=== PATIENT | female | born 1980 | race Caucasian/White ===

== ENCOUNTER 2018-11-21 10:55 | Emergency (ER) | payer SELFPAY ==
[2018-11-21 11:05] VITALS: BP 129/83
--- NOTE | 2018-11-21 11:24 | ER Document Report ---
HPI - HPI Time Seen by Provider: 11/21/18 11:18 Pain Level: 3 Notes: Patient is a 38-year-old female with no significant past medical history who presents emergency department complaining of right shoulder pain x1 day status post injury. Patient states that she was holding the leash to 1 of her daughter's dogs when it pulled really quickly causing her to fall forward. Patient states that she does have some abrasions to her knees, but her area of concern is her right shoulder. She did not lose consciousness or hit her head. She is eating and drinking without difficulty. She is urinating normally and having normal bowel movements. Patient states that she can ambulate without any discomfort. Denies drug allergies. She has not noticed any bruising or swelling. Denies any headache, fever, head injury, neck pain, changes in vision/speech/mentation/hearing, URI, sore throat, chest pain, palpitations, syncope, cough, shortness of breath, wheeze, dyspnea, abdominal pain, nausea/vomiting/diarrhea, urinary retention, dysuria, hematuria, loss of control of bowel or bladder, numbness/tingling, saddle anesthesia, muscle paralysis, or rash. - ROS Systems Reviewed and Negative: Yes All other systems reviewed and negative - REPRODUCTIVE Reproductive: DENIES: : Past Medical History - Social History Smoking Status: Never Smoker Family History: None Past Surgical History: Reports: Hx Section - Immunizations Hx Diphtheria, Pertussis, Tetanus Vaccination: Yes Vertical Provider Document - CONSTITUTIONAL Agree With Documented VS: Yes Notes: PHYSICAL EXAMINATION: GENERAL: Well-appearing, well-nourished and in no acute distress. NECK: Normal range of motion, supple without lymphadenopathy. Non-tender. Spurling negative. No rigidity/meningismus. LUNGS: Breath sounds clear to auscultation bilaterally and equal. No wheezes rales or rhonchi. HEART: Regular rate and rhythm without murmurs, rubs, gallops. Musculoskeletal: Rt shoulder: FROM to passive/active. Strength 5+/5. + mild impingement test. Neg speed test. No crepitus. No erythema or warmth. No deformity or ecchymosis. RC intact 5+/5 strength. No bony tenderness to palp. Knees b/l: FROM. No bony tenderness. Strength 5+/5. + small abrasions noted without ecchymosis, swelling, or deformity. N/v intact distal. Extremities: No cyanosis, clubbing, or edema b/l. Peripheral pulses 2+. Capillary refill less than 3 seconds. NEUROLOGICAL: Normal speech, normal gait. Normal sensory, motor exams PSYCH: Normal mood, normal affect. SKIN: see above. - INFECTION CONTROL TRAVEL OUTSIDE OF THE [place] IN LAST 30 DAYS: No Course - Re-evaluation Re-evalutation: 11/21/18 11:20 Patient is an afebrile, well-hydrated, 38-year-old female who presents to the ED with Rt shoulder pain which I suspect to be a sprain versus strain. Di fferential also includes mild labral tear. Vitals are acceptable without any significant tachycardia, tachypnea, or hypoxia. PE is otherwise unremarkable for any neurovascular compromise, obvious tendon/ligament rupture, obvious fracture/dislocation, septic joint. No tenderness to palp. Sling provided today. Exercises reviewed. Patient is nontoxic-appearing. Patient is able to ambulate and weight-bear. [place] knee rules neg. No labs or imaging warranted at this time based on H&P. Conservative measures otherwise for symptoms. Recheck with your PCM in 3-5 days. Consider consult orthopedics. Return to the ED with any worsening/concerning symptoms otherwise as reviewed in discharge. Patient is in agreement. - Vital Signs Vital signs: Temp Pulse Resp BP Pulse Ox 98.6 F 105 H 15 129/83 H 100 11/21/18 11:04 11/21/18 11:04 11/21/18 11:04 11/21/18 11:04 11/21/18 11:04 Discharge - Discharge Clinical Impression: Right shoulder pain Qualifiers: Chronicity: acute Qualified Code(s): M25.511 - Pain in right shoulder Condition: Stable Disposition: HOME, SELF-CARE Instructions: Exercise Program for the Shoulder ([facility]) Additional Instructions: Rest, Ice, Compression, Elevation Use sling as directed Tylenol/ibuprofen as needed Light stretches daily Strength exercises as able Moist heat and massage may help F/u with your PCP in 3-5 days for a recheck Consider consult(s) with Orthopedics/physical therapy for ongoing/worsening symptoms Return to the ED with any worsening symptoms and/or development of fever, headache, chest pain, palpitations, syncope, shortness of breath, trouble breathing, abdominal pain, n/v/d, muscle weakness/paralysis, numbness/tingling, swelling, redness, or other worsening symptoms that are concerning to you. Forms: Elevated Blood Pressure Referrals: [facility] ([facility]) [Provider Group] - Follow up as needed
== END 2018-11-21 11:42 | disposition home or self-care (01) ==
LOC: ER 10:55
DX: M25.511 Pain in right shoulder (principal)
CPT/HCPCS: 99283

== ENCOUNTER 2019-02-24 16:56 | Inpatient (IN) | payer SELFPAY ==
--- NOTE | 2019-02-24 19:26 | ER Document Report ---
ED Medical Screen (RME) - General Chief Complaint: Rectal Bleeding Stated Complaint: ANAL PAIN, BLEEDING Time Seen by Provider: 02/24/19 19:20 Mode of Arrival: Ambulatory Information source: Patient TRAVEL OUTSIDE OF THE [place] IN LAST 30 DAYS: No - HPI Notes: 02/24/19 19:27 38-year-old female presents to the ED for complaints of having diarrhea which is caused her to have anal pain and bleeding for well over 6 months, has never been seen by her primary care provider. Patient has never had this issue looked into before. Denies any new medications foods or travel. Denies a history of IBS or C. difficile. Patient never had a colonoscopy previously. Patient reports she does have a history of hemorrhoids, has tried hemorrhoid cream without relief. Denies any clotting or bleeding disorders. Patient states that she has bloody diarrhea persistently. ROS: Other than noted above, the 12 point review of systems was reviewed with the patient and were negative, all pertinent findings are included in the HPI. PHYSICAL EXAMINATION: Vital signs reviewed. GENERAL: Well-appearing, well-nourished and in no acute distress. HEAD: Atraumatic, normocephalic. NECK: Normal range of motion CV: Heart regular rate and rhythm LUNGS: No respiratory distress ABD: no tenderness throughout Musculoskeletal: Normal range of motion NEUROLOGICAL: Normal speech PSYCH: Normal mood, normal affect. MDM: Patient seen and examined for rapid initial assessment. Vital signs reviewed. A comprehensive ED assessment and evaluation of the patient, analysis of test results and completion of the medical decision making process will be conducted by additional ED providers. *Note is created using voice recognition software and may contain spelling, syn tax or grammatical errors. - Related Data Allergies/Adverse Reactions: No Known Allergies Allergy (Verified 02/24/19 16:56) Past Medical History Renal/ Medical History: Denies: Hx Peritoneal Dialysis Past Surgical History: Reports: Hx Section - Immunizations Hx Diphtheria, Pertussis, Tetanus Vaccination: Yes Physical Exam - Vital signs Vitals: Temp Pulse Resp BP Pulse Ox 98.4 F 112 H 14 120/75 100 02/24/19 16:59 02/24/19 16:59 02/24/19 16:59 02/24/19 16:59 02/24/19 16:59 Course - Vital Signs Vital signs: Temp Pulse Resp BP Pulse Ox 98.4 F 112 H 14 120/75 100 02/24/19 16:59 02/24/19 16:59 02/24/19 16:59 02/24/19 16:59 02/24/19 16:59
[2019-02-24 20:28] LABS: HEMATOCRIT 16.9 % (36.0-47.0); MEAN CORPUSCULAR HEMOGLOBIN 21.1 pg (27.0-33.4); MEAN CORPUSCULAR HGB CONC 28.5 g/dL (32.0-36.0); MEAN CORPUSCULAR VOLUME 74 fl (80-97); PLATELET COUNT 227 10^3/uL (150-450); RED BLOOD COUNT 2.29 10^6/uL (3.72-5.28); RED CELL DISTRIBUTION WIDTH 19.4 % (11.5-14.0); WHITE BLOOD COUNT 7.5 10^3/uL (4.0-10.5)
[2019-02-24 20:31] LABS: INTERNATIONAL RATION (INR) 1.58
[2019-02-24 20:32] LABS: PARTIAL THROMBOPLASTIN TIME 36.2 SEC (23.5-35.8)
[2019-02-24 20:38] LABS: ALBUMIN 2.8 g/dL (3.5-5.0); ALKALINE PHOSPHATASE 384 U/L (38-126); ANION GAP 12 (5-19); ASPARTATE AMINO TRANSFERASE 164 U/L (14-36); BILIRUBIN,DIRECT 1.8 mg/dL (0.0-0.4); BILIRUBIN,TOTAL 2.8 mg/dL (0.2-1.3); CALCIUM 8.4 mg/dL (8.4-10.2); CARBON DIOXIDE 25 mmol/L (22-30); CHLORIDE 99 mmol/L (98-107); GLUCOSE 74 mg/dL (75-110); POTASSIUM 3.8 mmol/L (3.6-5.0); TOTAL PROTEIN 6.6 g/dL (6.3-8.2)
[2019-02-24 20:41] LABS: BLOOD UREA NITROGEN < 2 mg/dL (7-20)
[2019-02-24 20:53] LABS: ABSOLUTE LYMPHOCYTES# (MANUAL) 1.7 10^3/uL (0.5-4.7); ABSOLUTE MONOCYTES # (MANUAL) 0.3 10^3/uL (0.1-1.4); ANISOCYTOSIS 2+; BASOPHILS % (MANUAL) 0 % (0-2); EOSINOPHILS % (MANUAL) 0 % (0-6); HYPOCHROMASIA 4+; LYMPHOCYTES % (MANUAL) 23 % (13-45); MONOCYTES % (MANUAL) 4 % (3-13); PLATELET COMMENT ADEQUATE; SEGMENTED NEUTROPHILS % (MAN) 73 % (42-78); STOMATOCYTES 1+; TOTAL CELLS COUNTED 100
[2019-02-24 20:54] LABS: HEMOGLOBIN 4.8 g/dL (12.0-15.5)
[2019-02-24] MEDS ORDERED: NORMAL SALINE 250 ML IV PRN (21:14)
[2019-02-24] MEDS ORDERED: ONDANSETRON HCL INJ/PF 4 MG/2 ML SDV IV ONE (21:15)
[2019-02-24] MEDS ORDERED: MORPHINE SULFATE 10 MG/ML INJ IV ONE (21:15)
--- NOTE | 2019-02-24 21:23 | ER Document Report ---
ED General - General Chief Complaint: Rectal Bleeding Stated Complaint: ANAL PAIN, BLEEDING Time Seen by Provider: 02/24/19 19:20 Mode of Arrival: Ambulatory TRAVEL OUTSIDE OF THE [place] IN LAST 30 DAYS: No - HPI Notes: Patient is a 38-year-old female who presents to the emergency department for evaluation of increased rectal and hemorrhoidal pain, bloody diarrhea. She is been having the symptoms for about 6 months, worse over the last several days. She states that when she lays down at night she has pain that is shooting and electrical in nature, rates it a 4 out of 5. It is in the rectal region. She states she has bright red blood per rectum with every bowel movement. It is diarrhea like. She has attributed to her hemorrhoids. She has not followed up with anybody in regards to this. She is never had a colonoscopy. She describes feeling weak in general. - Related Data Allergies/Adverse Reactions: No Known Allergies Allergy (Verified 02/24/19 16:56) Past Medical History - General Information source: Patient - Social History Smoking Status: Never Smoker Frequency of alcohol use: None Drug Abuse: None Family History: Other - sister of a "stomach tumor" Patient has suicidal ideation: No Patient has homicidal ideation: No - Past Medical History Cardiac Medical History: Reports: None Renal/ Medical History: Denies: Hx Peritoneal Dialysis Past Surgical History: Reports: Hx Section - Immunizations Hx Diphtheria, Pertussis, Tetanus Vaccination: Yes Review of Systems - Review of Systems Constitutional: See HPI EENT: No symptoms reported Cardiovascular: No symptoms reported Respiratory: No symptoms reported Gastrointestinal: See HPI Genitourinary: No symptoms reported Female Genitourinary: No symptoms reported Musculoskeletal: No symptoms reported Skin: No symptoms reported Neurological/Psychological: No symptoms reported Physical Exam - Vital signs Vitals: Temp Pulse Resp BP Pulse Ox 98.4 F 112 H 14 120/75 100 02/24/19 16:59 02/24/19 16:59 02/24/19 16:59 02/24/19 16:59 02/24/19 16:59 - Notes Notes: Vital signs reviewed, please refer to chart. Head is normocephalic, atraumatic. Pupils equal round, reactive to light. Neck is supple without meningismus. Heart is regular rate and rhythm. Lungs are clear to auscultation bilaterally. Abdomen is soft, nontender, normoactive bowel sounds throughout. No hepatomegaly appreciated. Rectal exam is performed. Nurse Solange in the room at the time of rectal exam. She has a large prolapsed hemorrhoids, which are not thrombosed or actively bleeding. She has bright red blood on rectal exam. Extremities without cyanosis, clubbing. Posterior calves are nontender. Peripheral pulses are equal. Skin is warm and dry. Patient is awake, alert, neurological exam is nonfocal. Course - Re-evaluation Re-evalutation: 02/24/19 21:21 Patient presents emergency department for evaluation. She had initial laboratory vesication's as ordered through triage. I did order her pain medicine, as a rectal exam was significantly uncomfortable for the patient. Given her low hemoglobin, she was typed and crossed for 3 units. I am concerned with her abnormal LFTs about the possibility of metastatic colon cancer of some sort. CT scan of the abdomen pelvis with IV contrast is ordered and pending at this time. We will continue to monitor. 02/24/19 23:32 Patient receiving blood. Her CT scan revealed anasarca, findings concerning for metastasis. I am strongly concerned that this patient is a primary colon cancer. We do have gastroenterology on this evening. She will likely require colonoscopy for further evaluation. She is given blood, tolerating that well. She asks for more pain medication. Abnormal findings explained her in detail, as well as the need for work-up. She voiced understanding. I spoke with Dr. Lopez who will come to the department to evaluate the patient. 02/24/19 23:33 - Vital Signs Vital signs: Temp Pulse Resp BP Pulse Ox 98.3 F 112 H 15 108/50 L 98 02/24/19 23:23 02/24/19 23:50 02/24/19 23:50 02/24/19 23:46 02/24/19 23:50 - Laboratory Result Diagrams: 02/24/19 20:00 02/24/19 20:00 Laboratory results interpreted by me: 02/24/19 02/24/19 02/24/19 20:00 20:00 20:00 RBC 2.29 L Hgb 4.8 L* Hct 16.9 L MCV 74 L MCH 21.1 L MCHC 28.5 L RDW 19.4 H PT 19.0 H APTT 36.2 H Sodium 135.5 L BUN < 2 L Creatinine 0.42 L Glucose 74 L Total Bilirubin 2.8 H Direct Bilirubin 1.8 H AST 164 H Alkaline Phosphatase 384 H Albumin 2.8 L Stool for White Cells Crossmatch 02/24/19 02/24/19 20:00 20:50 RBC Hgb Hct MCV MCH MCHC RDW PT APTT Sodium BUN Creatinine Glucose Total Bilirubin Direct Bilirubin AST Alkaline Phosphatase Albumin Stool for White Cells FEW H Crossmatch See Detail Discharge - Discharge Clinical Impression: Severe anemia, Lower GI bleeding, Anasarca Condition: Stable Disposition: ADMITTED INPATIENT Admitting Provider: Jessica (Hospitalist) Unit Admitted: Telemetry
--- NOTE | 2019-02-24 22:58 | RADIOLOGY REPORT (SQ) ---
EXAM DESCRIPTION: CT ABDOMEN PELVIS WITH IV CONTRAST COMPLETED DATE/TME: 02/24/2019 21:15 CLINICAL HISTORY: 38 years, Female, rectal bleeding, abnormal LFTs COMPARISON: None. TECHNIQUE: CT of the abdomen and pelvis was performed following intravenous administration of contrast. Oral contrast was not administered. Images stored on PACS. All CT scanners at this facility use dose modulation, iterative reconstruction, and/or weight based dosing when appropriate to reduce radiation dose to as low as reasonably achievable (ALARA). [facility]: Dose Right [facility]: CareDose [facility]: Dose Right [facility]: Teradose 4D [facility]: PureWRX LIMITATIONS: None. FINDINGS: Chest: Evaluation through the lung bases reveals no focal opacity, pleural effusion or pneumothorax. Heart size is within normal limits. No pericardial effusion. Abdomen and pelvis: Hepatomegaly measuring 18 cm in craniocaudal dimension. Splenomegaly measuring 17 cm in craniocaudal dimension. Prominent perisplenic upper abdominal vessels concerning for varices. Diffusely decreased attenuation of the liver raising the possibility of hepatic steatosis, however a nonspecific finding on a contrast-enhanced CT examination. Diffuse haziness of the abdominal pelvic mesentery with thin linear stranding/layering fluid of the bilateral paracolic gutter. Additionally, small fluid collection present within the dependent pelvis with associated diffuse reticulation of the subcutaneous tissues suggesting anasarca and developing ascites. Additionally, there is diffuse hazy appearance of the retroperitoneal fat planes suggesting edema. Trace fluid suspected at the level of the gallbladder fossa. The gallbladder, pancreas, bilateral kidneys and bilateral adrenal glands are otherwise within normal limits. The vessels are patent and normal in caliber. No abdominopelvic lymph nodes are noted to be pathologically enlarged by CT measurement criteria. The bowel is within normal limits without abnormal bowel wall thickness or bowel dilation. No free air. No organizing abdominopelvic fluid collections. The appendix is within normal limits. The osseous structures are within normal limits. IMPRESSION: 1. No specific acute intra-abdominal findings are noted to suggest etiology of the patient's abdominal pain. 2. Hepatosplenomegaly and suspected varices of uncertain etiology. 3. Mesenteric haziness with small volume of fluid within the bilateral paracolic gutters and pelvis concerning for ascites. 4. Diffuse reticulation of the abdominopelvic soft tissues suggesting anasarca. 5. Trace fluid suspected at the gallbladder fossa. TECHNICAL DOCUMENTATION: Quality ID # 436: Final reports with documentation of one or more dose reduction techniques (e.g., Automated exposure control, adjustment of the mA and/or kV according to patient size, use of iterative reconstruction technique) copyright 2011 [employer]- All Rights Reserved
--- NOTE | 2019-02-25 00:12 | PDOC H&P ---
History of Present Illness Admission Date/PCP: 02/24/19 History of Present Illness: JEFF MCKENZIE is a 38 year old female with a history of hemorrhoids who comes and because of bright red blood per rectum and rectal pain. She said it is been going on for at least 6 months and has gotten worse in the past month. She at tributed the bleeding to the hemorrhoids that she has had since she has had children. She says in the past month she has had intermittent rectal pain that seems to get worse whenever she lays down. She has not been to see a doctor about this and does not have a primary care doctor. Her oral intake has decreased. She denies any abdominal pain but says that her belly feels full. She has not had any melena, just hematochezia. The ER provider did not notice that her hemorrhoids were bleeding, but she did have bright red blood per rectum on rectal exam. The patient smokes a few cigarettes a day. She says that her sister a few years ago from a "stomach tumor." Her hemoglobin in the ER was 4.8, and she had a troubling constellation of laboratory abnormalities to go with it. She has some elevation of her liver enzymes and alkaline phosphatase, as well as her bilirubin. Her INR was also elevated. Her CT scan showed hepatosplenomegaly and anasarca, along with diffuse edema, but no definite masses or enlarged lymph nodes. She is being admitted for blood transfusion medical stabilization, and will ultimately need a colonoscopy. Past Medical History Cardiac Medical History: Reports: None Past Surgical History Past Surgical History: Reports: Section Social History Smoking Status: Never Smoker Family History Family History: Hypertension, Other - sister of a "stomach tumor" Parental Family History Reviewed: Yes Children Family History Reviewed: Yes - No medical problems Sibling(s) Family History Reviewed.: Yes - Sister of a "stomach tumor" Medication/Allergy Home Medications: Hydrocodone/Acetaminophen [[place] 5-325 mg Tablet] 1 tab PO QID #15 tablet 09/19/13 Amoxicillin 500 mg PO BID #20 capsule 08/19/15 Allergies/Adverse Reactions: No Known Allergies Allergy (Verified 02/24/19 16:56) Review of Systems All systems: reviewed and no additional remarkable complaints except as stated - All systems were reviewed and were negative except as noted in the HPI Physical Exam Vital Signs: Temp Pulse Resp BP Pulse Ox 98.3 F 112 H 15 108/50 L 98 02/24/19 23:23 02/24/19 23:50 02/24/19 23:50 02/24/19 23:46 02/24/19 23:50 Intake & Output 02/23/19 02/24/19 02/25/19 06:59 06:59 06:59 Intake Total 0 Balance 0 Weight 75.9 kg General appearance: PRESENT: no acute distress, cooperative, disheveled, obese Head exam: PRESENT: atraumatic, normocephalic Eye exam: PRESENT: EOMI, PERRLA, scleral icterus. ABSENT: conjunctival injection, nystagmus Ear exam: PRESENT: normal external ear exam Mouth exam: PRESENT: moist, neck supple Throat exam: ABSENT: post pharyngeal erythema Neck exam: PRESENT: full ROM. ABSENT: carotid bruit, JVD, lymphadenopathy, meningismus, tenderness, thyromegaly Respiratory exam: PRESENT: clear to auscultation shira, symmetrical, unlabored. ABSENT: accessory muscle use, chest wall tenderness, crackles, prolonged expiratory phas, rhonchi, tachypnea, wheezes Cardiovascular exam: PRESENT: +S1, +S2, tachycardia Pulses: PRESENT: normal carotid pulses Vascular exam: PRESENT: pallor GI/Abdominal exam: PRESENT: normal bowel sounds, soft. ABSENT: distended, guarding, mass, rebound, tenderness Extremities exam: ABSENT: clubbing, pedal edema Musculoskeletal exam: PRESENT: ambulatory, normal inspection. ABSENT: deformity Neurological exam: PRESENT: alert, awake, oriented to person, oriented to place, oriented to situation, CN II-XII grossly intact. ABSENT: motor sensory deficit Psychiatric exam: PRESENT: appropriate affect, normal mood Skin exam: PRESENT: dry, jaundice, warm Results Laboratory Results: 02/24/19 20:00 02/24/19 20:00 02/24/19 02/24/19 02/24/19 20:00 20:00 20:00 WBC 7.5 RBC 2.29 L Hgb 4.8 L* Hct 16.9 L MCV 74 L MCH 21.1 L MCHC 28.5 L RDW 19.4 H Plt Count 227 Seg Neutrophils % Not Reportable Lymphocytes % Not Reportable Monocytes % Not Reportable Eosinophils % Not Reportable Basophils % Not Reportable Absolute Neutrophils Not Reportable Absolute Lymphocytes Not Reportable Absolute Monocytes Not Reportable Absolute Eosinophils Not Reportable Absolute Basophils Not Reportable Sodium 135.5 L Potassium 3.8 Chloride 99 Carbon Dioxide 25 Anion Gap 12 BUN < 2 L Creatinine 0.42 L Est GFR ( Amer) > 60 Est GFR (Non-Af Amer) > 60 Glucose 74 L Calcium 8.4 Total Bilirubin 2.8 H AST 164 H Alkaline Phosphatase 384 H Total Protein 6.6 Albumin 2.8 L Stool for White Cells FEW H Blood Type Antibody Screen 02/24/19 20:50 WBC RBC Hgb Hct MCV MCH MCHC RDW Plt Count Seg Neutrophils % Lymphocytes % Monocytes % Eosinophils % Basophils % Absolute Neutrophils Absolute Lymphocytes Absolute Monocytes Absolute Eosinophils Absolute Basophils Sodium Potassium Chloride Carbon Dioxide Anion Gap BUN Creatinine Est GFR ( Amer) Est GFR (Non-Af Amer) Glucose Calcium Total Bilirubin AST Alkaline Phosphatase Total Protein Albumin Stool for White Cells Blood Type A NEGATIVE Antibody Screen NEGATIVE Impressions: Abdomen/Pelvis CT 02/24/19 21:15 IMPRESSION: 1. No specific acute intra-abdominal findings are noted to suggest etiology of the patient's abdominal pain. 2. Hepatosplenomegaly and suspected varices of uncertain etiology. 3. Mesenteric haziness with small volume of fluid within the bilateral paracolic gutters and pelvis concerning for ascites. 4. Diffuse reticulation of the abdominopelvic soft tissues suggesting anasarca. 5. Trace fluid suspected at the gallbladder fossa. TECHNICAL DOCUMENTATION: Quality ID # 436: Final reports with documentation of one or more dose reduction techniques (e.g., Automated exposure control, adjustment of the mA and/or kV according to patient size, use of iterative reconstruction technique) copyright 2011 [employer]- All Rights Reserved Assessment and Plan - Diagnosis (1) Acute blood loss anemia Is this a current diagnosis for this admission?: Yes Plan: She is had 3 units of packed red blood cells ordered. We will do serial CBCs to determine whether or not she will need more blood. (2) Lower GI bleeding Is this a current diagnosis for this admission?: Yes Plan: Once she is medically stabilized and looks like she does not have any more bleeding, either GI or surgery will need to be consulted for a colonoscopy. She has never had a colonoscopy. (3) Anasarca Is this a current diagnosis for this admission?: Yes Plan: Her presentation is troubling. She does not have any definite masses on her CT, but she had a constellation of findings on the CT scan coupled with some of her laboratory findings as well as her family history that will definitely warrant further investigation. As noted above, when her hemoglobin appears stable she will need a consultation negative colonoscopy. Depending upon the findings, she may need an oncology consultation. I will order a CEA and a CA 199. - Time Time Spent with patient: 35 or more minutes - Inpatient Certification Based on my medical assessment, after consideration of the patient's comorbidities, presenting symptoms, or acuity I expect that the services needed warrant INPATIENT care.: Yes I certify that my determination is in accordance with my understanding of Medicare's requirements for reasonable and necessary INPATIENT services [42 CFR 412.3e].: Yes Medical Necessity: Need Close Monitoring Due to Risk of Patient Decompensation, Need For IV Fluids, Need For Continuous Telemetry Monitoring, Risk of Complication if Not Cared For in Hospital
[2019-02-25] MEDS ORDERED: MORPHINE SULFATE 10 MG/ML INJ IV ONE (01:38)
[2019-02-25] MEDS ORDERED: CALCIUM CARBONATE 500 MG TAB.CHEW PO ONE (04:00)
[2019-02-25] MEDS: MORPHINE SULFATE 10 MG/ML INJ IV PRN ×3 (05:44→20:48)
[2019-02-25 10:40] LABS: PATH REVIEW PATHOLOGIST REVIEWED
[2019-02-25 12:26] LABS: HEMATOCRIT 23.5 % (36.0-47.0); MEAN CORPUSCULAR HEMOGLOBIN 25.2 pg (27.0-33.4); PLATELET COUNT 179 10^3/uL (150-450); RED BLOOD COUNT 2.98 10^6/uL (3.72-5.28); RED CELL DISTRIBUTION WIDTH 20.2 % (11.5-14.0); WHITE BLOOD COUNT 6.6 10^3/uL (4.0-10.5)
[2019-02-25 12:28] LABS: MEAN CORPUSCULAR VOLUME 79 fl (80-97)
[2019-02-25 12:29] LABS: HEMOGLOBIN 7.5 g/dL (12.0-15.5)
[2019-02-25 12:41] LABS: ALBUMIN 2.5 g/dL (3.5-5.0); ALKALINE PHOSPHATASE 311 U/L (38-126); ANION GAP 6 (5-19); ASPARTATE AMINO TRANSFERASE 107 U/L (14-36); BILIRUBIN,DIRECT 3.3 mg/dL (0.0-0.4); CALCIUM 8.5 mg/dL (8.4-10.2); CARBON DIOXIDE 27 mmol/L (22-30); CHLORIDE 101 mmol/L (98-107); GLUCOSE 88 mg/dL (75-110); POTASSIUM 3.8 mmol/L (3.6-5.0)
[2019-02-25 12:43] LABS: BLOOD UREA NITROGEN < 2 mg/dL (7-20)
--- NOTE | 2019-02-25 13:20 | PDOC PROGRESS REPORT ---
Subjective Progress Note for:: 02/25/19 Subjective:: This is a 38 yr old female with chronic alcohol abuse (drinks 3-4 cans of beer/day) and hemorrhoids who presented with bright red blood per rectum for several months, rectal pain and severe anemia. She was admitted for GI bleed. No acute event overnight. Patient just finished her third unit of packed RBC. States that she still has bright red blood on her stool this morning but not as significant as the past few days. She denies abdominal pain. No hematemesis. Will consult GI as she may need both colonoscopy and a screening EGD for varices. Reason For Visit: ABLA, LOWER GI BLEED Physical Exam Vital Signs: Temp Pulse Resp BP Pulse Ox 98.2 F 94 15 100/55 L 95 02/25/19 09:00 02/25/19 09:00 02/25/19 09:00 02/25/19 09:00 02/25/19 09:00 Intake & Output 02/24/19 02/25/19 02/26/19 06:59 06:59 06:59 Intake Total 600 0 Balance 600 0 Weight 167 lb 5.294 oz General appearance: PRESENT: no acute distress, well-developed, well-nourished Head exam: PRESENT: atraumatic, normocephalic Eye exam: PRESENT: conjunctiva pink, EOMI, PERRLA. ABSENT: scleral icterus Ear exam: PRESENT: normal external ear exam Mouth exam: PRESENT: moist, tongue midline Neck exam: ABSENT: carotid bruit, JVD, lymphadenopathy, thyromegaly Respiratory exam: PRESENT: clear to auscultation shira. ABSENT: rales, rhonchi, wheezes Cardiovascular exam: PRESENT: RRR. ABSENT: diastolic murmur, rubs, systolic murmur Pulses: PRESENT: normal dorsalis pedis pul GI/Abdominal exam: PRESENT: normal bowel sounds, soft. ABSENT: distended, guarding, mass, organolmegaly, rebound, tenderness Rectal exam: PRESENT: deferred Extremities exam: PRESENT: full ROM. ABSENT: calf tenderness, clubbing, pedal edema Neurological exam: PRESENT: alert, awake, oriented to person, oriented to place, oriented to time, oriented to situation, CN II-XII grossly intact. ABSENT: motor sensory deficit Results Laboratory Results: 02/24/19 20:00 02/24/19 20:00 02/24/19 02/24/19 02/24/19 20:00 20:00 20:00 WBC 7.5 RBC 2.29 L Hgb 4.8 L* Hct 16.9 L MCV 74 L MCH 21.1 L MCHC 28.5 L RDW 19.4 H Plt Count 227 Seg Neutrophils % Not Reportable Lymphocytes % Not Reportable Monocytes % Not Reportable Eosinophils % Not Reportable Basophils % Not Reportable Absolute Neutrophils Not Reportable Absolute Lymphocytes Not Reportable Absolute Monocytes Not Reportable Absolute Eosinophils Not Reportable Absolute Basophils Not Reportable Sodium 135.5 L Potassium 3.8 Chloride 99 Carbon Dioxide 25 Anion Gap 12 BUN < 2 L Creatinine 0.42 L Est GFR ( Amer) > 60 Est GFR (Non-Af Amer) > 60 Glucose 74 L Calcium 8.4 Total Bilirubin 2.8 H AST 164 H Alkaline Phosphatase 384 H Total Protein 6.6 Albumin 2.8 L Stool for White Cells FEW H Blood Type Antibody Screen 02/24/19 20:50 WBC RBC Hgb Hct MCV MCH MCHC RDW Plt Count Seg Neutrophils % Lymphocytes % Monocytes % Eosinophils % Basophils % Absolute Neutrophils Absolute Lymphocytes Absolute Monocytes Absolute Eosinophils Absolute Basophils Sodium Potassium Chloride Carbon Dioxide Anion Gap BUN Creatinine Est GFR ( Amer) Est GFR (Non-Af Amer) Glucose Calcium Total Bilirubin AST Alkaline Phosphatase Total Protein Albumin Stool for White Cells Blood Type A NEGATIVE Antibody Screen NEGATIVE Impressions: Abdomen/Pelvis CT 02/24/19 21:15 IMPRESSION: 1. No specific acute intra-abdominal findings are noted to suggest etiology of the patient's abdominal pain. 2. Hepatosplenomegaly and suspected varices of uncertain etiology. 3. Mesenteric haziness with small volume of fluid within the bilateral paracolic gutters and pelvis concerning for ascites. 4. Diffuse reticulation of the abdominopelvic soft tissues suggesting anasarca. 5. Trace fluid suspected at the gallbladder fossa. TECHNICAL DOCUMENTATION: Quality ID # 436: Final reports with documentation of one or more dose reduction techniques (e.g., Automated exposure control, adjustment of the mA and/or kV according to patient size, use of iterative reconstruction technique) copyright 2011 [employer]- All Rights Reserved Assessment and Plan - Diagnosis (1) Acute blood loss anemia Is this a current diagnosis for this admission?: Yes Plan: She had 3 units of packed red blood cells. Repeat Hb has improved to 7.5. Will cotninue to monitor H&H. (2) Lower GI bleeding Is this a current diagnosis for this admission?: Yes Plan: Consulted GI as she may need both colonoscopy and a screening EGD for varices. (3) Severe anemia Is this a current diagnosis for this admission?: Yes Plan: As per number 1. (4) Alcohol abuse Is this a current diagnosis for this admission?: Yes Plan: She says she drinks 3 cans of beer a day and has been drinking for more than 10 years. She says her last drink was 3 days ago. Counseled in length about alcohol use cessation. 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 - Time Time Spent with patient: 25-34 minutes
[2019-02-25] MEDS ORDERED: PEG 3350/NA SULF,BICARB,CL/KCL 4000 ML PO ONE (17:15)
[2019-02-25] MEDS: NORMAL SALINE 1000 ML 1,000 ML IV PRN (17:30)
[2019-02-25 18:37] LABS: HEMATOCRIT 25.8 % (36.0-47.0); HEMOGLOBIN 8.2 g/dL (12.0-15.5); MEAN CORPUSCULAR HEMOGLOBIN 25.1 pg (27.0-33.4); MEAN CORPUSCULAR HGB CONC 31.7 g/dL (32.0-36.0); MEAN CORPUSCULAR VOLUME 79 fl (80-97); PLATELET COUNT 193 10^3/uL (150-450); RED BLOOD COUNT 3.25 10^6/uL (3.72-5.28); RED CELL DISTRIBUTION WIDTH 20.7 % (11.5-14.0); WHITE BLOOD COUNT 7.7 10^3/uL (4.0-10.5)
[2019-02-26 01:21] LABS: HEMATOCRIT 24.3 % (36.0-47.0); MEAN CORPUSCULAR HEMOGLOBIN 25.3 pg (27.0-33.4); MEAN CORPUSCULAR HGB CONC 32.1 g/dL (32.0-36.0); MEAN CORPUSCULAR VOLUME 79 fl (80-97); PLATELET COUNT 184 10^3/uL (150-450); RED BLOOD COUNT 3.09 10^6/uL (3.72-5.28); RED CELL DISTRIBUTION WIDTH 20.8 % (11.5-14.0)
[2019-02-26 01:26] LABS: HEMOGLOBIN 7.8 g/dL (12.0-15.5)
[2019-02-26] MEDS: MORPHINE SULFATE 10 MG/ML INJ IV PRN ×3 (02:59→14:12)
[2019-02-26] MEDS: NORMAL SALINE 1000 ML 1,000 ML IV PRN (06:56)
[2019-02-26 08:21] LABS: ALBUMIN 2.7 g/dL (3.5-5.0); ALKALINE PHOSPHATASE 318 U/L (38-126); ANION GAP 8 (5-19); ASPARTATE AMINO TRANSFERASE 109 U/L (14-36); BILIRUBIN,DIRECT 3.1 mg/dL (0.0-0.4); BILIRUBIN,TOTAL 4.6 mg/dL (0.2-1.3); CALCIUM 8.5 mg/dL (8.4-10.2); CARBON DIOXIDE 27 mmol/L (22-30); CHLORIDE 98 mmol/L (98-107); GLUCOSE 74 mg/dL (75-110); POTASSIUM 3.3 mmol/L (3.6-5.0); TOTAL PROTEIN 6.5 g/dL (6.3-8.2)
[2019-02-26 08:23] LABS: BLOOD UREA NITROGEN < 2 mg/dL (7-20)
[2019-02-26] MEDS: POTASSI CL 20 MEQ/50 ML RIDER 20 MEQ/50 ML RTUPB IV SCH ×2 (10:09→14:00)
--- NOTE | 2019-02-26 11:25 | PDOC CONSULTATION ---
Consultation Consult Date: 02/26/19 Provider Consulted: HERMINIO GRIFFIN Consult reason:: possible GI bleeding History of Present Illness Admission Date/PCP: 02/24/19 23:53 History of Present Illness: JEFF MCKENZIE is a 38 year old female patient admitted for abnormal CT scan and anemia admits to rectal bleeding on CT scan there is a ? possible having varices may have liver abnormalities as well patient has not had a GI work up in the past Dr Cooley requested a consult on this patient she will definitely need a colonoscopy for reasons involving her rectal bleeding she will need an EGD as well, ? possible varices will schedule with Propofol sedation Past Medical History Cardiac Medical History: Reports: None Psychiatric Medical History: Denies: Depression Past Surgical History Past Surgical History: Reports: Section Social History Smoking Status: Current Every Day Smoker Cigars Per Day: 5 Frequency of Alcohol Use: Heavy Hx Recreational Drug Use: No Drugs: None Hx Prescription Drug Abuse: No Family History Family History: Other - sister of a "stomach tumor" Parental Family History Reviewed: Yes Children Family History Reviewed: Unknown Sibling(s) Family History Reviewed.: Unknown Medication/Allergy Home Medications: No Home Medications 02/25/19 Allergies/Adverse Reactions: No Known Allergies Allergy (Verified 02/24/19 16:56) Review of Systems Constitutional: ABSENT: fever(s), headache(s), night sweats, weakness Eyes: ABSENT: visual disturbances Ears: ABSENT: hearing changes Nose, Mouth, and Throat: ABSENT: mouth pain, sore throat Cardiovascular: ABSENT: edema, orthropnea Gastrointestinal: PRESENT: melena. ABSENT: hematemesis Genitourinary: ABSENT: dysuria, hematuria Musculoskeletal: ABSENT: joint swelling Neurological: ABSENT: syncope, tingling, tremor(s), vertigo Endocrine: PRESENT: polyuria. ABSENT: polydipsia, polyphagia Hematologic/Lymphatic: ABSENT: easy bruising Physical Exam Vital Signs: Temp Pulse Resp BP Pulse Ox 98.3 F 90 16 103/66 97 02/26/19 09:26 02/26/19 09:26 02/26/19 09:26 02/26/19 09:26 02/26/19 09:26 Intake & Output 02/25/19 02/26/19 02/27/19 06:59 06:59 06:59 Intake Total 600 2347 Balance 600 2347 Weight 75.9 kg 75.9 kg General appearance: PRESENT: no acute distress, well-developed, well-nourished Head exam: PRESENT: atraumatic, normocephalic Eye exam: PRESENT: EOMI, nystagmus, PERRLA. ABSENT: periorbital swelling Mouth exam: PRESENT: moist, neck supple Throat exam: ABSENT: tonsillar erythema Neck exam: ABSENT: meningismus, tenderness, thyromegaly Respiratory exam: PRESENT: symmetrical, tachypnea, unlabored, wheezes Cardiovascular exam: PRESENT: RRR, +S1. ABSENT: +S2 GI/Abdominal exam: PRESENT: normal bowel sounds, rebound, soft, tenderness. ABSENT: rigid Extremities exam: ABSENT: joint swelling Neurological exam: PRESENT: oriented to time, oriented to situation, CN II-XII g rossly intact Focused psych exam: ABSENT: restlessness Skin exam: PRESENT: normal color. ABSENT: mottled, pallor, urticaria, vesicles Results Laboratory Results: 02/26/19 00:51 02/26/19 07:25 02/25/19 02/25/19 02/25/19 12:01 12:01 18:20 WBC 6.6 7.7 RBC 2.98 L 3.25 L Hgb 7.5 L D 8.2 L Hct 23.5 L 25.8 L MCV 79 L D 79 L MCH 25.2 L 25.1 L MCHC 32.0 31.7 L RDW 20.2 H 20.7 H Plt Count 179 193 Sodium 133.7 L Potassium 3.8 Chloride 101 Carbon Dioxide 27 Anion Gap 6 BUN < 2 L Creatinine 0.45 L Est GFR ( Amer) > 60 Est GFR (Non-Af Amer) > 60 Glucose 88 Calcium 8.5 Total Bilirubin 5.0 H AST 107 H Alkaline Phosphatase 311 H Total Protein 6.0 L Albumin 2.5 L 02/26/19 02/26/19 00:51 07:25 WBC 7.0 RBC 3.09 L Hgb 7.8 L Hct 24.3 L MCV 79 L MCH 25.3 L MCHC 32.1 RDW 20.8 H Plt Count 184 Sodium 133.2 L Potassium 3.3 L Chloride 98 Carbon Dioxide 27 Anion Gap 8 BUN < 2 L Creatinine 0.39 L Est GFR ( Amer) > 60 Est GFR (Non-Af Amer) > 60 Glucose 74 L Calcium 8.5 Total Bilirubin 4.6 H AST 109 H Alkaline Phosphatase 318 H Total Protein 6.5 Albumin 2.7 L Impressions: Abdomen/Pelvis CT 02/24/19 21:15 IMPRESSION: 1. No specific acute intra-abdominal findings are noted to suggest etiology of the patient's abdominal pain. 2. Hepatosplenomegaly and suspected varices of uncertain etiology. 3. Mesenteric haziness with small volume of fluid within the bilateral paracolic gutters and pelvis concerning for ascites. 4. Diffuse reticulation of the abdominopelvic soft tissues suggesting anasarca. 5. Trace fluid suspected at the gallbladder fossa. TECHNICAL DOCUMENTATION: Quality ID # 436: Final reports with documentation of one or more dose reduction techniques (e.g., Automated exposure control, adjustment of the mA and/or kV according to patient size, use of iterative reconstruction technique) copyright 2011 [employer]- All Rights Reserved Assessment & Plan - Diagnosis (1) Lower GI bleeding Is this a current diagnosis for this admission?: Yes Plan: will schedule GI work up to include both EGD and colonoscopy Risks, benefits and alternatives are discussed with the patient in detail further recommendations to follow she would benefit from Propofol sedation - Time Time Spent: 50 to 70 Minutes
--- NOTE | 2019-02-26 11:43 | PDOC PROGRESS REPORT ---
Subjective Progress Note for:: 02/26/19 Subjective:: This is a 38 yr old female with chronic alcohol abuse (drinks 3-4 cans of beer/day) and hemorrhoids who presented with bright red blood per rectum for several months, rectal pain and severe anemia. She was admitted for GI bleed. 02/25: Patient just finished her third unit of packed RBC. States that she still has bright red blood on her stool this morning but not as significant as the past few days. She denies abdominal pain. No hematemesis. Will consult GI as she may need both colonoscopy and a screening EGD for varices. 02/26: No acute event overnight. Overnight, she did have a few bright red bloody stools. No hematemesis. Hemoglobin has been stable. She denies abdominal pain. She is scheduled for an EGD and colonoscopy later today. Reason For Visit: ABLA, LOWER GI BLEED Physical Exam Vital Signs: Temp Pulse Resp BP Pulse Ox 98.3 F 90 16 103/66 97 02/26/19 09:26 02/26/19 09:26 02/26/19 09:26 02/26/19 09:26 02/26/19 09:26 Intake & Output 02/25/19 02/26/19 02/27/19 06:59 06:59 06:59 Intake Total 600 2347 Balance 600 2347 Weight 167 lb 5.294 oz 167 lb 5.294 oz General appearance: PRESENT: no acute distress, well-developed, well-nourished Head exam: PRESENT: atraumatic, normocephalic Eye exam: PRESENT: conjunctiva pink, EOMI, PERRLA. ABSENT: scleral icterus Ear exam: PRESENT: normal external ear exam Mouth exam: PRESENT: moist, tongue midline Neck exam: ABSENT: carotid bruit, JVD, lymphadenopathy, thyromegaly Respiratory exam: PRESENT: clear to auscultation shira. ABSENT: rales, rhonchi, wheezes Cardiovascular exam: PRESENT: RRR. ABSENT: diastolic murmur, rubs, systolic murmur Pulses: PRESENT: normal dorsalis pedis pul GI/Abdominal exam: PRESENT: normal bowel sounds, soft. ABSENT: distended, guarding, mass, organolmegaly, rebound, tenderness Rectal exam: PRESENT: deferred Extremities exam: PRESENT: full ROM. ABSENT: calf tenderness, clubbing, pedal edema Neurological exam: PRESENT: alert, awake, oriented to person, oriented to place, oriented to time, oriented to situation, CN II-XII grossly intact. ABSENT: motor sensory deficit Results Laboratory Results: 02/26/19 00:51 02/26/19 07:25 02/25/19 02/25/19 02/25/19 12:01 12:01 18:20 WBC 6.6 7.7 RBC 2.98 L 3.25 L Hgb 7.5 L D 8.2 L Hct 23.5 L 25.8 L MCV 79 L D 79 L MCH 25.2 L 25.1 L MCHC 32.0 31.7 L RDW 20.2 H 20.7 H Plt Count 179 193 Sodium 133.7 L Potassium 3.8 Chloride 101 Carbon Dioxide 27 Anion Gap 6 BUN < 2 L Creatinine 0.45 L Est GFR ( Amer) > 60 Est GFR (Non-Af Amer) > 60 Glucose 88 Calcium 8.5 Total Bilirubin 5.0 H AST 107 H Alkaline Phosphatase 311 H Total Protein 6.0 L Albumin 2.5 L 02/26/19 02/26/19 00:51 07:25 WBC 7.0 RBC 3.09 L Hgb 7.8 L Hct 24.3 L MCV 79 L MCH 25.3 L MCHC 32.1 RDW 20.8 H Plt Count 184 Sodium 133.2 L Potassium 3.3 L Chloride 98 Carbon Dioxide 27 Anion Gap 8 BUN < 2 L Creatinine 0.39 L Est GFR ( Amer) > 60 Est GFR (Non-Af Amer) > 60 Glucose 74 L Calcium 8.5 Total Bilirubin 4.6 H AST 109 H Alkaline Phosphatase 318 H Total Protein 6.5 Albumin 2.7 L Impressions: Abdomen/Pelvis CT 02/24/19 21:15 IMPRESSION: 1. No specific acute intra-abdominal findings are noted to suggest etiology of the patient's abdominal pain. 2. Hepatosplenomegaly and suspected varices of uncertain etiology. 3. Mesenteric haziness with small volume of fluid within the bilateral paracolic gutters and pelvis concerning for ascites. 4. Diffuse reticulation of the abdominopelvic soft tissues suggesting anasarca. 5. Trace fluid suspected at the gallbladder fossa. TECHNICAL DOCUMENTATION: Quality ID # 436: Final reports with documentation of one or more dose reduction techniques (e.g., Automated exposure control, adjustment of the mA and/or kV according to patient size, use of iterative reconstruction technique) copyright 2011 [employer]- All Rights Reserved Assessment and Plan - Diagnosis (1) Acute blood loss anemia Is this a current diagnosis for this admission?: Yes Plan: 02/25: She had 3 units of packed red blood cells. Repeat Hb has improved to 7.5. Will continue to monitor H&H. 02/26: Overnight, she did have a few bright red bloody stools. No hematemesis. Hemoglobin has been stable. (2) Lower GI bleeding Is this a current diagnosis for this admission?: Yes Plan: 02/26: Overnight, she did have a few bright red bloody stools. No hematemesis. Hemoglobin has been stable. She is scheduled for an EGD and colonoscopy later today. (3) Severe anemia Is this a current diagnosis for this admission?: Yes Plan: As per number 1. (4) Alcohol abuse Is this a current diagnosis for this admission?: Yes Plan: She says she drinks 3 cans of beer a day and has been drinking for more than 10 years. She says her last drink was 3 days ago. Counseled in length about alcohol use cessation. 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 - Time Time Spent with patient: 25-34 minutes
[2019-02-26] MEDS ORDERED: PROPOFOL INJ 200 MG/20 ML VIAL IV ONE ×2 (11:45→18:25)
[2019-02-26] MEDS ORDERED: MIDAZOLAM 2 MG/2 ML INJ ONE ×3 (11:45→18:25)
--- NOTE | 2019-02-26 13:54 | Operative Report ---
Operative Report DATE OF SURGERY: 02/26/19 PREOPERATIVE DIAGNOSIS: rectal bleeding. ? varices POSTOPERATIVE DIAGNOSIS: gastritis, biopsies to rule out H.Pylori. bleeding external hemorrhoids OPERATION: diagnostic colonoscopy. EGD with biopsy SURGEON: HERMINIO GRIFFIN ANESTHESIA: LMAC TISSUE REMOVED OR ALTERED: gastric biopsy COMPLICATIONS: none ESTIMATED BLOOD LOSS: none INTRAOPERATIVE FINDINGS: as noted above PROCEDURE: patient tolerated her procedure well no immediate post procedure complications patient sent to [facility] in good condition significant amount of Propofol given which is suggestive of higher alcohol use than otherwise disclosed by the patient spoke with Dr Cooley will need surgical evaluation for actively bleeding hemorrhoids no varices noted will see PRN
[2019-02-26] MEDS ORDERED: SUCCINYLCHOLINE CHLORIDE INJ 200 MG/10 ML VIAL ONE (15:05)
--- NOTE | 2019-02-26 16:08 | PDOC CONSULTATION ---
Consultation Consult Date: 02/26/19 Provider Consulted: UMESH ELIAS Consult reason:: Bleeding hemorrhoids History of Present Illness Admission Date/PCP: 02/24/19 23:53 History of Present Illness: JEFF MCKENZIE is a 38 year old female currently in the hospital for evaluation of long-term history of perianal pain along with blood per rectum. She has noted bright red blood per rectum with bowel movements frequently over the past several months along with a lot of perianal pain and burning. Patient drinks alcohol on a daily basis. No history of hematemesis nor abdominal pain. She is on no anticoagulation at home. No prior perianal surgeries. Patient had underwent colonoscopy by Dr. Harris earlier today he noted no colon abnormalities however he saw evidence of active bleeding from internal hemorrhoids. He did not feel that these were variceal bleeds. He did not see any esophageal varices on upper endoscopy. Past Medical History Medical History: None Cardiac Medical History: Reports: None Psychiatric Medical History: Denies: Depression Past Surgical History Past Surgical History: Reports: Section Social History Smoking Status: Current Every Day Smoker Cigars Per Day: 5 Frequency of Alcohol Use: Heavy Hx Recreational Drug Use: No Drugs: None Hx Prescription Drug Abuse: No - Advance Directive Resuscitation Status: Full Code Family History Family History: Other - sister of a "stomach tumor" Parental Family History Reviewed: Yes Children Family History Reviewed: Yes Sibling(s) Family History Reviewed.: Yes Medication/Allergy Home Medications: No Home Medications 02/25/19 Allergies/Adverse Reactions: No Known Allergies Allergy (Verified 02/24/19 16:56) Review of Systems All systems: reviewed and no additional remarkable complaints except as stated Constitutional: PRESENT: fatigue Gastrointestinal: PRESENT: as per HPI Physical Exam Vital Signs: Temp Pulse Resp BP Pulse Ox 98.3 F 82 16 124/66 98 02/26/19 09:26 02/26/19 13:06 02/26/19 13:06 02/26/19 13:06 02/26/19 13:06 Intake & Output 02/25/19 02/26/19 02/27/19 06:59 06:59 06:59 Intake Total 600 2347 500 Output Total 0 Balance 600 2347 500 Weight 75.9 kg 75.9 kg General appearance: PRESENT: no acute distress, cooperative Neck exam: PRESENT: other - Supple with no tenderness Respiratory exam: PRESENT: clear to auscultation shira Cardiovascular exam: PRESENT: RRR GI/Abdominal exam: PRESENT: other - Mildly distended, no significant tenderness to palpation. Rectal exam: PRESENT: other - Patient with profound perianal skin redundancies with partially prolapsed internal hemorrhoids that spontaneously reduced in between 2 subsequent exams. Patient refused digital rectal exam. There is no active bleeding at this time. Neurological exam: PRESENT: alert, awake Psychiatric exam: PRESENT: appropriate affect Results Laboratory Results: 02/26/19 00:51 02/26/19 07:25 02/25/19 02/26/19 02/26/19 18:20 00:51 07:25 WBC 7.7 7.0 RBC 3.25 L 3.09 L Hgb 8.2 L 7.8 L Hct 25.8 L 24.3 L MCV 79 L 79 L MCH 25.1 L 25.3 L MCHC 31.7 L 32.1 RDW 20.7 H 20.8 H Plt Count 193 184 Sodium 133.2 L Potassium 3.3 L Chloride 98 Carbon Dioxide 27 Anion Gap 8 BUN < 2 L Creatinine 0.39 L Est GFR ( Amer) > 60 Est GFR (Non-Af Amer) > 60 Glucose 74 L Calcium 8.5 Total Bilirubin 4.6 H AST 109 H Alkaline Phosphatase 318 H Total Protein 6.5 Albumin 2.7 L 02/24/19 20:00 Stool - Stool - Final 02/24/19 20:00 Stool - Stool Stool Culture - Final NO SALMONELLA, SHIGELLA, CAMPYLOBACTER, OR E.COLI 0157 RECOVERED. NEGATIVE FOR SHIGA TOXINS 1&2. Impressions: Abdomen/Pelvis CT 02/24/19 21:15 IMPRESSION: 1. No specific acute intra-abdominal findings are noted to suggest etiology of the patient's abdominal pain. 2. Hepatosplenomegaly and suspected varices of uncertain etiology. 3. Mesenteric haziness with small volume of fluid within the bilateral paracolic gutters and pelvis concerning for ascites. 4. Diffuse reticulation of the abdominopelvic soft tissues suggesting anasarca. 5. Trace fluid suspected at the gallbladder fossa. TECHNICAL DOCUMENTATION: Quality ID # 436: Final reports with documentation of one or more dose reduction techniques (e.g., Automated exposure control, adjustment of the mA and/or kV according to patient size, use of iterative reconstruction technique) copyright 2011 [employer]- All Rights Reserved Assessment & Plan - Diagnosis (1) Hemorrhoids Qualifiers: Hemorrhoid type: second degree Qualified Code(s): K64.1 - Second degree hemorrhoids Is this a current diagnosis for this admission?: Yes Plan: Patient with a lot of perianal redundancies but her internal hemorrhoids are not incarcerated. She is bleeding from internal hemorrhoids. I have offered her options of rubber band ligation of her internal hemorrhoids versus surgical h emorrhoidectomy. I have discussed with the patient the risk and benefits of both of these procedures. She understands that with a rubber band ligation I will leave the perianal redundancies alone. Rubber band ligation carries risk of perianal sepsis and recurrence but risks are far less than surgical hemorrhoidectomy. Surgical hemorrhoidectomy is more definitive with less risk of recurrence however carries risk of anal stenosis, incontinence and severe post operative pain. Patient wants to proceed with banding. If during anoscopy, I feel that she requires excision, I will abort the procedure and reschedule her for surgical hemorroidectomy. She understands that the rubber band ligation may not relieve all of her symptoms.
[2019-02-26] MEDS ORDERED: ONDANSETRON HCL INJ/PF 4 MG/2 ML SDV ONE ×2 (16:54→18:25)
[2019-02-26] MEDS ORDERED: DIPHENHYDRAMINE HCL 50 MG/ML VIAL ONE (16:54)
[2019-02-26] MEDS ORDERED: FENTANYL CITRATE INJ/PF 100 MCG/2 ML AMPUL ONE ×2 (16:54→18:25)
[2019-02-26] MEDS ORDERED: FLUMAZENIL INJ 0.5 MG/5 ML VIAL ONE (16:55)
[2019-02-26] MEDS ORDERED: NALOXONE HCL INJ/PF 0.4 MG/1 ML SDV ONE (16:55)
[2019-02-26] MEDS ORDERED: GLUCAGON,HUMAN RECOMB 1 MG INJ ONE (16:55)
[2019-02-26] MEDS ORDERED: EPINEPHRINE INJ 1 MG/10 ML DISP.SYRIN ONE (16:55)
[2019-02-26] MEDS ORDERED: LIDOCAINE 2% JELLY 30 ML TUBE ONE ×2 (17:50→19:00)
[2019-02-26] MEDS ORDERED: DEXAMETHASONE SOD PHOSPHATE INJ 4 MG/1 ML VIAL ONE (18:25)
[2019-02-26] MEDS ORDERED: BUPIVACAINE HCL 0.25 % INJ/PF (2.5 MG/1 ML) 30 ML VIAL ONE (18:58)
[2019-02-26] MEDS ORDERED: LIDOCAINE 0.5%/EPINEPHRINE INJ 50 ML VIAL ONE (18:59)
[2019-02-26] MEDS ORDERED: OXYCODONE-ACETAMINOPHEN 5-325 MG TABLET PO PRN ×2 (19:51)
[2019-02-26] MEDS ORDERED: PROMETHAZINE HCL INJ 25 MG/1 ML VIAL IV PRN ×2 (19:51)
[2019-02-26] MEDS ORDERED: MORPHINE SULFATE 10 MG/ML INJ IV PRN (19:51)
[2019-02-26] MEDS ORDERED: ONDANSETRON HCL INJ/PF 4 MG/2 ML SDV IV PRN (19:51)
[2019-02-26] MEDS ORDERED: MEPERIDINE HCL/PF INJ 25 MG/1 ML DISP.SYRIN IV PRN (19:51)
[2019-02-26] MEDS ORDERED: DIPHENHYDRAMINE HCL 50 MG/ML VIAL IV PRN (19:51)
[2019-02-26] MEDS ORDERED: FENTANYL CITRATE INJ/PF 100 MCG/2 ML AMPUL IV PRN ×3 (19:51)
[2019-02-26] MEDS ORDERED: ACETAMINOPHEN 1,000 MG/100 ML RTUPB IV ONE (21:04)
[2019-02-26] MEDS: HYDROMORPHONE HCL INJ/PF 2 MG/ML AMPULE ONE ×2 (21:05→21:10)
--- NOTE | 2019-02-26 21:11 | Operative Report ---
Operative Report DATE OF SURGERY: 02/26/19 PREOPERATIVE DIAGNOSIS: Bleeding internal hemorrhoids POSTOPERATIVE DIAGNOSIS: Bleeding internal hemorrhoids OPERATION: Anoscopy with banding of internal hemorrhoids x3 SURGEON: UMESH ELIAS ANESTHESIA: Moderate Sedation TISSUE REMOVED OR ALTERED: Internal hemorrhoids banded COMPLICATIONS: None ESTIMATED BLOOD LOSS: 30 cc INTRAOPERATIVE FINDINGS: 3 column internal hemorrhoids. Bleeding at the distal aspect of left lateral internal hemorrhoidal complex, too distal to band. PROCEDURE: Informed consent was obtained. Patient was brought to the endoscopy suite. IV sedation with Versed and fentanyl was administered. Anoscope was inserted and 3 column internal hemorrhoids were noted. There was some bleeding at the time of the anoscope insertion. It appeared to be bleeding from the left lateral internal hemorrhoidal complex although it was difficult to tell. This hemorrhoidal complex was banded first using the suction rubber band device. The right posterior and the right anterior complexes were then banded. Great care was taken to place the bands above the level of the dentate line. Patient did not have increased pain with the band placements. However after banding had been completed patient continued to have bleeding. It appeared to be emanating from the distal aspect of the left lateral internal hemorrhoidal complex at its junction to the perianal skin redundancies. This region was too low to attempt the banding. With the failure of the banding to control her bleeding, I discussed with the patient proceeding with surgical hemorrhoidectomy in the operating room. Patient agreed to proceed. I had conversation with her immediately after the banding procedure and later just prior prior to going in for the hemorrhoidectomy. Since the patient did receive sedation I discussed this matter with the patient's who also agreed to proceed. He stated to me that he had already discussed with his that if this banding procedure did not work then they would proceed on with a surgical hemorrhoidectomy. And prior to the banding procedure I had discussed with the patient and the patient's the risk and benefits of surgical hemorrhoidectomy.
--- NOTE | 2019-02-27 00:10 | PDOC PROGRESS REPORT ---
Subjective Progress Note for:: 02/27/19 Subjective:: Patient states that she feels much better with minimal perianal pain Reason For Visit: ABLA, LOWER GI BLEED Physical Exam Vital Signs: Temp Pulse Resp BP Pulse Ox 98.2 F 98 11 L 118/80 94 02/26/19 15:54 02/26/19 18:30 02/26/19 18:30 02/26/19 18:30 02/26/19 18:30 Intake & Output 02/25/19 02/26/19 02/27/19 06:59 06:59 06:59 Intake Total 600 2647 1850 Output Total 0 Balance 600 2647 1850 Weight 75.9 kg 75.9 kg General appearance: PRESENT: no acute distress, cooperative Respiratory exam: PRESENT: clear to auscultation shira Cardiovascular exam: PRESENT: RRR Rectal exam: PRESENT: other - Dressings are dry with no evidence of bleeding. Results Laboratory Results: 02/26/19 00:51 02/26/19 07:25 02/26/19 02/26/19 00:51 07:25 WBC 7.0 RBC 3.09 L Hgb 7.8 L Hct 24.3 L MCV 79 L MCH 25.3 L MCHC 32.1 RDW 20.8 H Plt Count 184 Sodium 133.2 L Potassium 3.3 L Chloride 98 Carbon Dioxide 27 Anion Gap 8 BUN < 2 L Creatinine 0.39 L Est GFR ( Amer) > 60 Est GFR (Non-Af Amer) > 60 Glucose 74 L Calcium 8.5 Total Bilirubin 4.6 H AST 109 H Alkaline Phosphatase 318 H Total Protein 6.5 Albumin 2.7 L 02/24/19 20:00 Stool - Stool - Final 02/24/19 20:00 Stool - Stool Stool Culture - Final NO SALMONELLA, SHIGELLA, CAMPYLOBACTER, OR E.COLI 0157 RECOVERED. NEGATIVE FOR SHIGA TOXINS 1&2. Impressions: Abdomen/Pelvis CT 02/24/19 21:15 IMPRESSION: 1. No specific acute intra-abdominal findings are noted to suggest etiology of the patient's abdominal pain. 2. Hepatosplenomegaly and suspected varices of uncertain etiology. 3. Mesenteric haziness with small volume of fluid within the bilateral paracolic gutters and pelvis concerning for ascites. 4. Diffuse reticulation of the abdominopelvic soft tissues suggesting anasarca. 5. Trace fluid suspected at the gallbladder fossa. TECHNICAL DOCUMENTATION: Quality ID # 436: Final reports with documentation of one or more dose reduction techniques (e.g., Automated exposure control, adjustment of the mA and/or kV according to patient size, use of iterative reconstruction technique) copyright 2011 [employer]- All Rights Reserved Assessment & Plan - Diagnosis (1) Hemorrhoids Qualifiers: Hemorrhoid type: second degree Qualified Code(s): K64.1 - Second degree hemorrhoids Is this a current diagnosis for this admission?: Yes Plan: Status post hemorrhoidectomy. Patient looks good postoperatively. Will start a diet in the morning.
[2019-02-27] MEDS: NORMAL SALINE 1000 ML 1,000 ML IV PRN ×3 (03:12→23:51)
[2019-02-27] MEDS: MORPHINE SULFATE 10 MG/ML INJ IV PRN ×7 (04:01→23:47)
[2019-02-27 04:31] LABS: HEMATOCRIT 23.8 % (36.0-47.0); MEAN CORPUSCULAR HEMOGLOBIN 25.1 pg (27.0-33.4); MEAN CORPUSCULAR HGB CONC 30.9 g/dL (32.0-36.0); MEAN CORPUSCULAR VOLUME 81 fl (80-97); PLATELET COUNT 181 10^3/uL (150-450); RED BLOOD COUNT 2.92 10^6/uL (3.72-5.28); RED CELL DISTRIBUTION WIDTH 21.3 % (11.5-14.0); WHITE BLOOD COUNT 5.5 10^3/uL (4.0-10.5)
[2019-02-27 04:39] LABS: HEMOGLOBIN 7.4 g/dL (12.0-15.5)
[2019-02-27 04:48] LABS: ALBUMIN 2.5 g/dL (3.5-5.0); ALKALINE PHOSPHATASE 272 U/L (38-126); ANION GAP 9 (5-19); ASPARTATE AMINO TRANSFERASE 71 U/L (14-36); BILIRUBIN,DIRECT 2.3 mg/dL (0.0-0.4); BILIRUBIN,TOTAL 3.4 mg/dL (0.2-1.3); CALCIUM 8.3 mg/dL (8.4-10.2); CARBON DIOXIDE 24 mmol/L (22-30); CHLORIDE 102 mmol/L (98-107); GLUCOSE 116 mg/dL (75-110); POTASSIUM 3.5 mmol/L (3.6-5.0); TOTAL PROTEIN 5.9 g/dL (6.3-8.2)
[2019-02-27 04:55] LABS: BLOOD UREA NITROGEN < 2 mg/dL (7-20)
[2019-02-27] MEDS: DOCUSATE SODIUM 100 MG CAPSULE PO SCH ×2 (09:20→17:28)
--- NOTE | 2019-02-27 10:32 | Operative Report ---
Operative Report DATE OF SURGERY: 02/26/19 PREOPERATIVE DIAGNOSIS: Bleeding internal hemorrhoids POSTOPERATIVE DIAGNOSIS: Bleeding internal hemorrhoids OPERATION: 3 column internal hemorrhoidectomy using LigaSure. SURGEON: UMESH ELIAS ANESTHESIA: GA TISSUE REMOVED OR ALTERED: 3 column internal hemorrhoids COMPLICATIONS: None ESTIMATED BLOOD LOSS: 100 cc INTRAOPERATIVE FINDINGS: Briskly bleeding left lateral internal hemorrhoidal complex. Right anterior and right posterior internal hemorrhoidal complexes. PROCEDURE: Informed consent was obtained. Patient was brought to the operating room. After satisfactory induction of general anesthesia patient was placed in a prone jackknife position and her buttocks was taped apart and prepped and draped in usual sterile fashion. Local anesthetic with epi was administered in the perianal region. Anoscope was performed demonstrating brisk bleeding from the left lateral hemorrhoidal complex. The bleeding was initially controlled with compression. The patient's markedly redundant perianal skin was partially excised and the dissection was carried cephalad, excising the hemorrhoidal complex, staying superficial to the anal sphincter, using the LigaSure device. Hemostasis appeared to be good. The mucosal defect was then closed with chromic suture leaving the distal portion of the wound open. Attention was then drawn to the right side. The right anterior and right posterior hemorrhoidal complexes were not as prominent as the left side, however there was oozing at the distal portions of both of these hemorrhoidal complexes. The right posterior hemorrhoidal complex was taken beginning at the anoderm with scalpel dissection and proceeding cephalad using the LigaSure. The right anterior hemorrhoidal complex was the smallest of the three and was likewise excised. Care was taken during the case to minimize risk for anal stenosis, staying intentionally narrow with the right anterior and right posterior hemorrhoidal complex excision. The cephalad edge of the excision of the right anterior hemorrhoidal complex had couple of prominent vessels and these vessels were ligated with [id number] chromic sutures. There was bleeding at the right posterior hemorrhoidal complex excision site cephalad wound edge and this bleeding was controlled with a [id number] chromic suture. The mucosal defects were closed with a running chromic sutures. At the end of the case I was able to insert two digits into the anal canal. There was slight oozing at the suture line of the closure at the right posterior region. Manual compression was applied and then Gelfoam was inserted in the anal canal. There was no evidence of active bleeding at the end of the case. Of note during the procedure the previously deployed hemorrhoidal rubber bands were displaced. She tolerated procedure well with no apparent complications and was taken to the recovery area in stable condition.
[2019-02-27] MEDS ORDERED: POTASSIUM CHLORIDE 10 MEQ CAPSULE.ER PO ONE (10:48)
--- NOTE | 2019-02-27 12:38 | PDOC PROGRESS REPORT ---
Subjective Progress Note for:: 02/27/19 Subjective:: anal pains post hemorrhoidectomy yesterday Reason For Visit: ABLA, LOWER GI BLEED Physical Exam Vital Signs: Temp Pulse Resp BP Pulse Ox 98.0 F 103 H 17 93/75 L 95 02/27/19 08:13 02/27/19 08:13 02/27/19 08:13 02/27/19 08:13 02/27/19 08:13 Intake & Output 02/26/19 02/27/19 02/28/19 06:59 06:59 06:59 Intake Total 2647 4400 Output Total 200 Balance 2647 4200 Weight 75.9 kg 84.1 kg Exam: abdomen remains soft and nontender. Her gelfoam placed yesterday in the OR spontaneously came out without evidence of active bleeding. Her Hbis 7.4 this am from 7.8 yesterday. Likely due to equilibration/dilution rather than active bleeding Continue monitor H/H. Results Laboratory Results: 02/27/19 04:15 02/27/19 04:13 02/27/19 02/27/19 04:13 04:15 WBC 5.5 RBC 2.92 L Hgb 7.4 L Hct 23.8 L MCV 81 MCH 25.1 L MCHC 30.9 L RDW 21.3 H Plt Count 181 Sodium 135.2 L Potassium 3.5 L Chloride 102 Carbon Dioxide 24 Anion Gap 9 BUN < 2 L Creatinine 0.35 L Est GFR ( Amer) > 60 Est GFR (Non-Af Amer) > 60 Glucose 116 H Calcium 8.3 L Total Bilirubin 3.4 H AST 71 H Alkaline Phosphatase 272 H Total Protein 5.9 L Albumin 2.5 L 02/24/19 20:00 Stool - Stool - Final 02/24/19 20:00 Stool - Stool Stool Culture - Final NO SALMONELLA, SHIGELLA, CAMPYLOBACTER, OR E.COLI 0157 RECOVERED. NEGATIVE FOR SHIGA TOXINS 1&2. Impressions: Abdomen/Pelvis CT 02/24/19 21:15 IMPRESSION: 1. No specific acute intra-abdominal findings are noted to suggest etiology of the patient's abdominal pain. 2. Hepatosplenomegaly and suspected varices of uncertain etiology. 3. Mesenteric haziness with small volume of fluid within the bilateral paracolic gutters and pelvis concerning for ascites. 4. Diffuse reticulation of the abdominopelvic soft tissues suggesting anasarca. 5. Trace fluid suspected at the gallbladder fossa. TECHNICAL DOCUMENTATION: Quality ID # 436: Final reports with documentation of one or more dose reduction techniques (e.g., Automated exposure control, adjustment of the mA and/or kV according to patient size, use of iterative reconstruction technique) copyright 2011 [employer]- All Rights Reserved Assessment & Plan - Time Time Spent with patient: 15-24 minutes - Inpatient Certification Medical Necessity: Need For IV Fluids, Need for Pain Control - Plan Summary Plan Summary: Continue monitor H/H Hb is 7.4 from 7.8 yesterday Recheck Coag's in am. Pt/INR slightly elevated. If needed to transfuse, suggest giving FFP per unit of PRBC's
--- NOTE | 2019-02-27 14:31 | PDOC PROGRESS REPORT ---
Subjective Progress Note for:: 02/27/19 Subjective:: This is a 38 yr old female with chronic alcohol abuse (drinks 3-4 cans of beer/day) and hemorrhoids who presented with bright red blood per rectum for several months, rectal pain and severe anemia. She was admitted for GI bleed. 02/25: Patient just finished her third unit of packed RBC. States that she still has bright red blood on her stool this morning but not as significant as the past few days. She denies abdominal pain. No hematemesis. Will consult GI as she may need both colonoscopy and a screening EGD for varices. 02/26: Overnight, she did have a few bright red bloody stools. No hematemesis. Hemoglobin has been stable. She denies abdominal pain. She is scheduled for an EGD and colonoscopy later today. 02/27: She underwent EGD and colonoscopy yesterday which did not show any varices or polyps but did reveal actively bleeding hemorrhoids. Surgery was consulted and she subsequently underwent banding and then hemorrhoidectomy. This morning, she had some bright red blood from the site of the hemorrhoidectomy. She denies any abdominal pain. Reason For Visit: ABLA, LOWER GI BLEED Physical Exam Vital Signs: Temp Pulse Resp BP Pulse Ox 98.0 F 103 H 17 93/75 L 95 02/27/19 08:13 02/27/19 08:13 02/27/19 08:13 02/27/19 08:13 02/27/19 08:13 Intake & Output 02/26/19 02/27/19 02/28/19 06:59 06:59 06:59 Intake Total 2647 4400 1000 Output Total 200 Balance 2647 4200 1000 Weight 167 lb 5.294 oz 185 lb 6.54 oz General appearance: PRESENT: no acute distress, well-developed, well-nourished Head exam: PRESENT: atraumatic, normocephalic Eye exam: PRESENT: conjunctiva pink, EOMI, PERRLA. ABSENT: scleral icterus Ear exam: PRESENT: normal external ear exam Mouth exam: PRESENT: moist, tongue midline Neck exam: ABSENT: carotid bruit, JVD, lymphadenopathy, thyromegaly Respiratory exam: PRESENT: clear to auscultation shira. ABSENT: rales, rhonchi, wheezes Cardiovascular exam: PRESENT: RRR. ABSENT: diastolic murmur, rubs, systolic murmur Pulses: PRESENT: normal dorsalis pedis pul GI/Abdominal exam: PRESENT: normal bowel sounds, soft. ABSENT: distended, g uarding, mass, organolmegaly, rebound, tenderness Rectal exam: PRESENT: deferred Extremities exam: PRESENT: full ROM. ABSENT: calf tenderness, clubbing, pedal edema Neurological exam: PRESENT: alert, awake, oriented to person, oriented to place, oriented to time, oriented to situation, CN II-XII grossly intact. ABSENT: mo tor sensory deficit Results Laboratory Results: 02/27/19 04:15 02/27/19 04:13 02/27/19 02/27/19 04:13 04:15 WBC 5.5 RBC 2.92 L Hgb 7.4 L Hct 23.8 L MCV 81 MCH 25.1 L MCHC 30.9 L RDW 21.3 H Plt Count 181 Sodium 135.2 L Potassium 3.5 L Chloride 102 Carbon Dioxide 24 Anion Gap 9 BUN < 2 L Creatinine 0.35 L Est GFR ( Amer) > 60 Est GFR (Non-Af Amer) > 60 Glucose 116 H Calcium 8.3 L Total Bilirubin 3.4 H AST 71 H Alkaline Phosphatase 272 H Total Protein 5.9 L Albumin 2.5 L 02/24/19 20:00 Stool - Stool - Final 02/24/19 20:00 Stool - Stool Stool Culture - Final NO SALMONELLA, SHIGELLA, CAMPYLOBACTER, OR E.COLI 0157 RECOVERED. NEGATIVE FOR SHIGA TOXINS 1&2. Impressions: Abdomen/Pelvis CT 02/24/19 21:15 IMPRESSION: 1. No specific acute intra-abdominal findings are noted to suggest etiology of the patient's abdominal pain. 2. Hepatosplenomegaly and suspected varices of uncertain etiology. 3. Mesenteric haziness with small volume of fluid within the bilateral paracolic gutters and pelvis concerning for ascites. 4. Diffuse reticulation of the abdominopelvic soft tissues suggesting anasarca. 5. Trace fluid suspected at the gallbladder fossa. TECHNICAL DOCUMENTATION: Quality ID # 436: Final reports with documentation of one or more dose reduction techniques (e.g., Automated exposure control, adjustment of the mA and/or kV according to patient size, use of iterative reconstruction technique) copyright 2011 [employer] All Rights Reserved Assessment and Plan - Diagnosis (1) Acute blood loss anemia Is this a current diagnosis for this admission?: Yes Plan: 02/25: She had 3 units of packed red blood cells. Repeat Hb has improved to 7.5. Will continue to monitor H&H. 02/26: Overnight, she did have a few bright red bloody stools. No hematemesis. Hemoglobin has been stable. 02/27: Hb at 7.4. Will continue to monitor Hb for now. (2) Lower GI bleeding Is this a current diagnosis for this admission?: Yes Plan: 02/26: Overnight, she did have a few bright red bloody stools. No hematemesis. Hemoglobin has been stable. She is scheduled for an EGD and colonoscopy later today. 02/27: She underwent EGD and colonoscopy yesterday which did not show any varices or polyps but did reveal actively bleeding hemorrhoids. Surgery was consulted and she subsequently underwent banding and then hemorrhoidectomy. (3) Severe anemia Is this a current diagnosis for this admission?: Yes Plan: As per number 1. (4) Alcohol abuse Is this a current diagnosis for this admission?: Yes Plan: She says she drinks 3 cans of beer a day and has been drinking for more than 10 years. She says her last drink was 3 days ago. Counseled in length about alcohol use cessation. 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 CA 10-9 is elevated. No discernible pancreatic mass on CT imaging.
[2019-02-28 04:43] LABS: ABSOLUTE LYMPHOCYTES (AUTO) 1.1 10^3/uL (0.5-4.7); ABSOLUTE MONOCYTES (AUTO) 0.8 10^3/uL (0.1-1.4); ABSOLUTE NEUT (AUTO) 4.7 10^3/uL (1.7-8.2); BASOPHILS % (AUTO) 0.3 % (0-2); EOSINOPHILS % (AUTO) 0.6 % (0-6); HEMATOCRIT 22.8 % (36.0-47.0); LYMPHOCYTES % (AUTO) 16.7 % (13-45); MEAN CORPUSCULAR HEMOGLOBIN 25.3 pg (27.0-33.4); MEAN CORPUSCULAR HGB CONC 30.7 g/dL (32.0-36.0); MEAN CORPUSCULAR VOLUME 83 fl (80-97); MONOCYTES % (AUTO) 11.5 % (3-13); PLATELET COUNT 177 10^3/uL (150-450); RED BLOOD COUNT 2.76 10^6/uL (3.72-5.28); RED CELL DISTRIBUTION WIDTH 22.1 % (11.5-14.0); SEGMENTED NEUTROPHILS % (AUTO) 70.9 % (42-78); TOTAL CELLS COUNTED % (AUTO) 100 %; WHITE BLOOD COUNT 6.6 10^3/uL (4.0-10.5)
[2019-02-28 04:54] LABS: ANION GAP 6 (5-19); CALCIUM 8.6 mg/dL (8.4-10.2); CARBON DIOXIDE 24 mmol/L (22-30); CHLORIDE 104 mmol/L (98-107); GLUCOSE 95 mg/dL (75-110); POTASSIUM 3.7 mmol/L (3.6-5.0)
[2019-02-28 04:56] LABS: BLOOD UREA NITROGEN < 2 mg/dL (7-20)
[2019-02-28] MEDS: MORPHINE SULFATE 10 MG/ML INJ IV PRN ×5 (06:22→22:02)
[2019-02-28] MEDS ORDERED: ONDANSETRON HCL INJ/PF 4 MG/2 ML SDV IV PRN (08:19)
[2019-02-28] MEDS ORDERED: TAMSULOSIN HCL 0.4 MG CAP.SR.24H PO ONE (09:00)
[2019-02-28] MEDS: DOCUSATE SODIUM 100 MG CAPSULE PO SCH ×2 (09:16→17:37)
--- NOTE | 2019-02-28 12:23 | PDOC PROGRESS REPORT ---
Subjective Progress Note for:: 02/28/19 Subjective:: pains on the rectal operative site. No shahzad bloody BM Reason For Visit: ABLA, LOWER GI BLEED Physical Exam Vital Signs: Temp Pulse Resp BP Pulse Ox 98.5 F 88 14 117/72 100 02/28/19 11:55 02/28/19 11:55 02/28/19 11:55 02/28/19 11:55 02/28/19 11:55 Intake & Output 02/27/19 02/28/19 03/01/19 06:59 06:59 06:59 Intake Total 4400 2797 0 Output Total 200 Balance 4200 2797 0 Weight 84.1 kg 89.1 kg Exam: abdomen is soft and non tender Results Laboratory Results: 02/28/19 04:19 02/28/19 04:19 02/28/19 02/28/19 02/28/19 04:19 04:19 07:11 WBC 6.6 RBC 2.76 L Hgb 7.0 L Hct 22.8 L MCV 83 MCH 25.3 L MCHC 30.7 L RDW 22.1 H Plt Count 177 Seg Neutrophils % 70.9 Lymphocytes % 16.7 Monocytes % 11.5 Eosinophils % 0.6 Basophils % 0.3 Absolute Neutrophils 4.7 Absolute Lymphocytes 1.1 Absolute Monocytes 0.8 Absolute Eosinophils 0.0 Absolute Basophils 0.0 Sodium 134.3 L Potassium 3.7 Chloride 104 Carbon Dioxide 24 Anion Gap 6 BUN < 2 L Creatinine 0.40 L Est GFR ( Amer) > 60 Est GFR (Non-Af Amer) > 60 Glucose 95 Calcium 8.6 Blood Type A NEGATIVE Antibody Screen NEGATIVE Impressions: Abdomen/Pelvis CT 02/24/19 21:15 IMPRESSION: 1. No specific acute intra-abdominal findings are noted to suggest etiology of the patient's abdominal pain. 2. Hepatosplenomegaly and suspected varices of uncertain etiology. 3. Mesenteric haziness with small volume of fluid within the bilateral paracolic gutters and pelvis concerning for ascites. 4. Diffuse reticulation of the abdominopelvic soft tissues suggesting anasarca. 5. Trace fluid suspected at the gallbladder fossa. TECHNICAL DOCUMENTATION: Quality ID # 436: Final reports with documentation of one or more dose reduction techniques (e.g., Automated exposure control, adjustment of the mA and/or kV according to patient size, use of iterative reconstruction technique) copyright 2011 [employer]- All Rights Reserved Assessment & Plan - Diagnosis (1) Acute blood loss anemia Is this a current diagnosis for this admission?: Yes (2) Alcohol abuse Is this a current diagnosis for this admission?: Yes (3) Hemorrhoids Qualifiers: Hemorrhoid type: second degree Qualified Code(s): K64.1 - Second degree hemorrhoids Is this a current diagnosis for this admission?: Yes - Time Time Spent with patient: 15-24 minutes - Inpatient Certification Medical Necessity: Need For IV Fluids, Need for Pain Control, Risk of Complication if Not Cared For in Hospital - Plan Summary Plan Summary: Her Hb decreased to 7.0 from 7.4 yesterday. Most likely due to equilibration rather than acute bleed Will follow prn OK to transfuse and continue monitor H/H
[2019-02-28] MEDS: NORMAL SALINE 1000 ML 1,000 ML IV PRN (14:09)
--- NOTE | 2019-02-28 14:26 | PDOC PROGRESS REPORT ---
Subjective Progress Note for:: 02/28/19 Subjective:: This is a 38 yr old female with chronic alcohol abuse (drinks 3-4 cans of beer/day) and hemorrhoids who presented with bright red blood per rectum for several months, rectal pain and severe anemia. She was admitted for GI bleed. 02/25: Patient just finished her third unit of packed RBC. States that she still has bright red blood on her stool this morning but not as significant as the past few days. She denies abdominal pain. No hematemesis. Will consult GI as she may need both colonoscopy and a screening EGD for varices. 02/26: Overnight, she did have a few bright red bloody stools. No hematemesis. Hemoglobin has been stable. She denies abdominal pain. She is scheduled for an EGD and colonoscopy later today. 02/27: She underwent EGD and colonoscopy yesterday which did not show any varices or polyps but did reveal actively bleeding hemorrhoids. Surgery was consulted and she subsequently underwent banding and then hemorrhoidectomy. This morning, she had some bright red blood from the site of the hemorrhoidectomy. She denies any abdominal pain. 02/28: She did have slightly bright red bloody she did have slightly bright red bloody stool this morning noted on the toilet bowl. Otherwise she denies abdominal pain. Hemoglobin has trended down to 7.0. Another unit of packed RBC has been ordered. Reason For Visit: ABLA, LOWER GI BLEED Physical Exam Vital Signs: Temp Pulse Resp BP Pulse Ox 97.9 F 84 18 107/66 100 02/28/19 12:55 02/28/19 12:55 02/28/19 12:55 02/28/19 12:55 02/28/19 12:55 Intake & Output 02/27/19 02/28/19 03/01/19 06:59 06:59 06:59 Intake Total 4400 2797 1000 Output Total 200 Balance 4200 2797 1000 Weight 185 lb 6.54 oz 196 lb 6.91 oz General appearance: PRESENT: no acute distress, well-developed, well-nourished Head exam: PRESENT: atraumatic, normocephalic Eye exam: PRESENT: conjunctiva pink, EOMI, PERRLA. ABSENT: scleral icterus Ear exam: PRESENT: normal external ear exam Mouth exam: PRESENT: moist, tongue midline Neck exam: ABSENT: carotid bruit, JVD, lymphadenopathy, thyromegaly Respiratory exam: PRESENT: clear to auscultation shira. ABSENT: rales, rhonchi, wheezes Cardiovascular exam: PRESENT: RRR. ABSENT: diastolic murmur, rubs, systolic murmur Pulses: PRESENT: normal dorsalis pedis pul GI/Abdominal exam: PRESENT: normal bowel sounds, soft. ABSENT: distended, guarding, mass, organolmegaly, rebound, tenderness Rectal exam: PRESENT: deferred Extremities exam: PRESENT: full ROM. ABSENT: calf tenderness, clubbing, pedal edema Neurological exam: PRESENT: alert, awake, oriented to person, oriented to place, oriented to time, oriented to situation, CN II-XII grossly intact. ABSENT: motor sensory deficit Results Laboratory Results: 02/28/19 04:19 02/28/19 04:19 02/28/19 02/28/19 02/28/19 04: 04:19 07:11 WBC 6.6 RBC 2.76 L Hgb 7.0 L Hct 22.8 L MCV 83 MCH 25.3 L MCHC 30.7 L RDW 22.1 H Plt Count 177 Seg Neutrophils % 70.9 Lymphocytes % 16.7 Monocytes % 11.5 Eosinophils % 0.6 Basophils % 0.3 Absolute Neutrophils 4.7 Absolute Lymphocytes 1.1 Absolute Monocytes 0.8 Absolute Eosinophils 0.0 Absolute Basophils 0.0 Sodium 134.3 L Potassium 3.7 Chloride 104 Carbon Dioxide 24 Anion Gap 6 BUN < 2 L Creatinine 0.40 L Est GFR ( Amer) > 60 Est GFR (Non-Af Amer) > 60 Glucose 95 Calcium 8.6 Blood Type A NEGATIVE Antibody Screen NEGATIVE Impressions: Abdomen/Pelvis CT 02/24/19 21:15 IMPRESSION: 1. No specific acute intra-abdominal findings are noted to suggest etiology of the patient's abdominal pain. 2. Hepatosplenomegaly and suspected varices of uncertain etiology. 3. Mesenteric haziness with small volume of fluid within the bilateral paracolic gutters and pelvis concerning for ascites. 4. Diffuse reticulation of the abdominopelvic soft tissues suggesting anasarca. 5. Trace fluid suspected at the gallbladder fossa. TECHNICAL DOCUMENTATION: Quality ID # [id number]: Final reports with documentation of one or more dose reduction techniques (e.g., Automated exposure control, adjustment of the mA and/or kV according to patient size, use of iterative reconstruction technique) copyright 2011 [employer]- All Rights Reserved Assessment and Plan - Diagnosis (1) Acute blood loss anemia Is this a current diagnosis for this admission?: Yes Plan: 02/25: She had 3 units of packed red blood cells. Repeat Hb has improved to 7.5. Will continue to monitor H&H. 02/26: Overnight, she did have a few bright red bloody stools. No hematemesis. Hemoglobin has been stable. 02/27: Hb at 7.4. Will continue to monitor Hb for now. 02/28: She did have slightly bright red bloody she did have slightly bright red bloody stool this morning noted on the toilet bowl. Otherwise she denies abdominal pain. Hemoglobin has trended down to 7.0. Another unit of packed RBC has been ordered. (2) Lower GI bleeding Is this a current diagnosis for this admission?: Yes Plan: 02/26: Overnight, she did have a few bright red bloody stools. No hematemesis. Hemoglobin has been stable. She is scheduled for an EGD and colonoscopy later today. 02/27: She underwent EGD and colonoscopy yesterday which did not show any varices or polyps but did reveal actively bleeding hemorrhoids. Surgery was consulted and she subsequently underwent banding and then hemorrhoidectomy. (3) Severe anemia Is this a current diagnosis for this admission?: Yes Plan: As per number 1. (4) Alcohol abuse Is this a current diagnosis for this admission?: Yes Plan: She says she drinks 3 cans of beer a day and has been drinking for more than 10 years. She says her last drink was 3 days ago. Counseled in length about alcohol use cessation. 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 CA 10-9 is elevated. No discernible pancreatic mass on CT imaging.
[2019-02-28 16:39] LABS: ABSOLUTE LYMPHOCYTES (AUTO) 0.8 10^3/uL (0.5-4.7); ABSOLUTE MONOCYTES (AUTO) 0.7 10^3/uL (0.1-1.4); ABSOLUTE NEUT (AUTO) 4.5 10^3/uL (1.7-8.2); BASOPHILS % (AUTO) 0.5 % (0-2); EOSINOPHILS % (AUTO) 0.3 % (0-6); HEMATOCRIT 23.7 % (36.0-47.0); LYMPHOCYTES % (AUTO) 13.5 % (13-45); MEAN CORPUSCULAR HEMOGLOBIN 24.9 pg (27.0-33.4); MEAN CORPUSCULAR HGB CONC 30.9 g/dL (32.0-36.0); MEAN CORPUSCULAR VOLUME 81 fl (80-97); MONOCYTES % (AUTO) 11.4 % (3-13); PLATELET COUNT 155 10^3/uL (150-450); RED BLOOD COUNT 2.94 10^6/uL (3.72-5.28); RED CELL DISTRIBUTION WIDTH 23.8 % (11.5-14.0); SEGMENTED NEUTROPHILS % (AUTO) 74.3 % (42-78); TOTAL CELLS COUNTED % (AUTO) 100 %
[2019-02-28 16:41] LABS: HEMOGLOBIN 7.3 g/dL (12.0-15.5)
[2019-03-01] MEDS: MORPHINE SULFATE 10 MG/ML INJ IV PRN ×2 (03:00→06:00)
[2019-03-01 04:38] LABS: ABSOLUTE LYMPHOCYTES (AUTO) 0.8 10^3/uL (0.5-4.7); ABSOLUTE MONOCYTES (AUTO) 0.8 10^3/uL (0.1-1.4); ABSOLUTE NEUT (AUTO) 4.9 10^3/uL (1.7-8.2); BASOPHILS % (AUTO) 0.4 % (0-2); EOSINOPHILS % (AUTO) 0.4 % (0-6); HEMATOCRIT 25.3 % (36.0-47.0); LYMPHOCYTES % (AUTO) 12.8 % (13-45); MEAN CORPUSCULAR HEMOGLOBIN 24.8 pg (27.0-33.4); MEAN CORPUSCULAR HGB CONC 30.8 g/dL (32.0-36.0); MEAN CORPUSCULAR VOLUME 81 fl (80-97); MONOCYTES % (AUTO) 11.7 % (3-13); PLATELET COUNT 165 10^3/uL (150-450); RED BLOOD COUNT 3.14 10^6/uL (3.72-5.28); RED CELL DISTRIBUTION WIDTH 24.3 % (11.5-14.0); SEGMENTED NEUTROPHILS % (AUTO) 74.7 % (42-78); TOTAL CELLS COUNTED % (AUTO) 100 %; WHITE BLOOD COUNT 6.6 10^3/uL (4.0-10.5)
[2019-03-01 04:58] LABS: ANISOCYTOSIS 3+; POIKILOCYTOSIS 2+; STOMATOCYTES 1+
[2019-03-01 04:59] LABS: PLATELET COMMENT ADEQUATE; TEAR DROP CELLS 1+
[2019-03-01 05:00] LABS: HEMOGLOBIN 7.8 g/dL (12.0-15.5)
[2019-03-01] MEDS: NORMAL SALINE 1000 ML 1,000 ML IV PRN (06:00)
[2019-03-01] MEDS ORDERED: TRAMADOL HCL 50 MG TABLET PO PRN (09:01)
[2019-03-01] MEDS: DOCUSATE SODIUM 100 MG CAPSULE PO SCH (09:29)
--- NOTE | 2019-03-01 11:19 | PDOC PROGRESS REPORT ---
Subjective Progress Note for:: 03/01/19 Subjective:: c/o mild perianal pain at defecation, small amount of blood at defecation Reason For Visit: ABLA, LOWER GI BLEED Physical Exam Vital Signs: Temp Pulse Resp BP Pulse Ox 98.6 F 94 18 122/85 100 03/01/19 07:14 03/01/19 07:14 03/01/19 07:14 03/01/19 07:14 03/01/19 07:14 Intake & Output 02/28/19 03/01/19 03/02/19 06:59 06:59 06:59 Intake Total 2797 3150 Balance 2797 3150 Weight 89.1 kg 89.1 kg Rectal exam: PRESENT: other - perianum normal Results Laboratory Results: 03/01/19 04:08 02/28/19 04:19 02/28/19 03/01/19 16:16 04:08 WBC 6.0 6.6 RBC 2.94 L 3.14 L Hgb 7.3 L 7.8 L Hct 23.7 L 25.3 L MCV 81 81 MCH 24.9 L 24.8 L MCHC 30.9 L 30.8 L RDW 23.8 H 24.3 H Plt Count 155 165 Seg Neutrophils % 74.3 74.7 Lymphocytes % 13.5 12.8 L Monocytes % 11.4 11.7 Eosinophils % 0.3 0.4 Basophils % 0.5 0.4 Absolute Neutrophils 4.5 4.9 Absolute Lymphocytes 0.8 0.8 Absolute Monocytes 0.7 0.8 Absolute Eosinophils 0.0 0.0 Absolute Basophils 0.0 0.0 Impressions: Abdomen/Pelvis CT 02/24/19 21:15 IMPRESSION: 1. No specific acute intra-abdominal findings are noted to suggest etiology of the patient's abdominal pain. 2. Hepatosplenomegaly and suspected varices of uncertain etiology. 3. Mesenteric haziness with small volume of fluid within the bilateral paracolic gutters and pelvis concerning for ascites. 4. Diffuse reticulation of the abdominopelvic soft tissues suggesting anasarca. 5. Trace fluid suspected at the gallbladder fossa. TECHNICAL DOCUMENTATION: Quality ID # 436: Final reports with documentation of one or more dose reduction techniques (e.g., Automated exposure control, adjustment of the mA and/or kV according to patient size, use of iterative reconstruction technique) copyright 2011 [employer]- All Rights Reserved Assessment & Plan - Diagnosis (1) Acute blood loss anemia Is this a current diagnosis for this admission?: Yes (2) Hemorrhoids Qualifiers: Hemorrhoid type: second degree Qualified Code(s): K64.1 - Second degree hemorrhoids Is this a current diagnosis for this admission?: Yes - Plan Summary Plan Summary: A/ S/p hemorrhoidectomy with Ligasure Normal bowel movements with mild parianal pain and small amount of blood with stools, both of which are expected P/ patient can be discharged to home today Follow up with ALYSON Alvarado in 2 weeks Low fiber diet x 3 weeks after surgery (no fruit, vegetables); reintroduce fiber in the diet afterward
[2019-03-01] MEDS ORDERED: HYDROCODONE/ACETAMINOPHEN 5-325 MG TABLET PO ONE (11:30)
[2019-03-01 12:27] VITALS: BP 112/73
--- NOTE | 2019-03-01 17:23 | PDOC DISCHARGE SUMMARY ---
General - Admit/Disc Date/PCP Admission Date/Primary Care Provider: 02/24/19 23:53 Discharge Date: 03/01/19 - Discharge Diagnosis (1) Acute blood loss anemia Is this a current diagnosis for this admission?: Yes (2) Lower GI bleeding Is this a current diagnosis for this admission?: Yes (3) Severe anemia Is this a current diagnosis for this admission?: Yes (4) Alcohol abuse Is this a current diagnosis for this admission?: Yes (5) Hepatosplenomegaly Is this a current diagnosis for this admission?: Yes - Additional Information Resuscitation Status: Full Code Discharge Diet: As Tolerated Discharge Activity: Activity As Tolerated Prescriptions: Acetaminophen [Tylenol] 650 mg PO Q6HP PRN #20 tablet PRN Reason: Docusate Sodium [Colace 100 mg Capsule] 100 mg PO BID #20 capsule Hydrocodone/Acetaminophen [[place] 5-325 mg Tablet] 1 tab PO Q6HP PRN #4 tablet PRN Reason: pain not relieved by tylenol Polyethylene Glycol 3350 [Miralax Powder 17 gm/Packet] 1 packet PO DAILY PRN #1 pkg PRN Reason: Home Medications: Acetaminophen [Tylenol] 650 mg PO Q6HP PRN #20 tablet 03/01/19 Docusate Sodium [Colace 100 mg Capsule] 100 mg PO BID #20 capsule 03/01/19 Hydrocodone/Acetaminophen [[place] 5-325 mg Tablet] 1 tab PO Q6HP PRN #4 tablet 03/01/19 Polyethylene Glycol 3350 [Miralax Powder 17 gm/Packet] 1 packet PO DAILY PRN #1 pkg 03/01/19 History of Present Illness History of Present Illness: Admitting hospitalist's H&P: JEFF MCKENZIE is a 38 year old female with a history of hemorrhoids who comes and because of bright red blood per rectum and rectal pain. She said it is been going on for at least 6 months and has gotten worse in the past month. She attributed the bleeding to the hemorrhoids that she has had since she has had children. She says in the past month she has had intermittent rectal pain that seems to get worse whenever she lays down. She has not been to see a doctor about this and does not have a primary care doctor. Her oral intake has decreased. She denies any abdominal pain but says that her belly feels full. She has not had any melena, just hematochezia. The ER provider did not notice that her hemorrhoids were bleeding, but she did have bright red blood per rectum on rectal exam. The patient smokes a few cigarettes a day. She says that her sister a few years ago from a "stomach tumor." Her hemoglobin in the ER was 4.8, and she had a troubling constellation of laboratory abnormalities to go with it. She has some elevation of her liver enzymes and alkaline phosphatase, as well as her bilirubin. Her INR was also elevated. Her CT scan showed hepatosplenomegaly and anasarca, along with diffuse edema, but no definite masses or enlarged lymph nodes. She is being admitted for blood transfusion medical stabilization, and will ultimately need a colonoscopy. Hospital Course Hospital Course: This is a 38 yr old female with chronic alcohol abuse (drinks 3-4 cans of beer/day) and hemorrhoids who presented with bright red blood per rectum for several months, rectal pain and severe anemia. She was admitted for GI bleed. 02/25: Patient just finished her third unit of packed RBC. States that she still has bright red blood on her stool this morning but not as significant as the past few days. She denies abdominal pain. No hematemesis. Will consult GI as she may need both colonoscopy and a screening EGD for varices. 02/26: Overnight, she did have a few bright red bloody stools. No hematemesis. Hemoglobin has been stable. She denies abdominal pain. She is scheduled for an EGD and colonoscopy later today. 02/27: She underwent EGD and colonoscopy yesterday which did not show any varices or polyps but did reveal actively bleeding hemorrhoids. Surgery was consulted and she subsequently underwent banding and then hemorrhoidectomy. This morning, she had some bright red blood from the site of the hemorrhoidectomy. She denies any abdominal pain. Patient received a total of 4 u of pRBCs. Her Hb did stabilize. She had minimal bleed from the hemorrhoidectomy site which was expected. She was reevaluated and cleared by surgery for discharge and will closely follow up with them in a week. Physical Exam Vital Signs: Temp Pulse Resp BP Pulse Ox 98.6 F 94 18 118/70 100 03/01/19 12:03 03/01/19 12:03 03/01/19 12:03 03/01/19 12:03 03/01/19 12:03 Intake & Output 02/28/19 03/01/19 03/02/19 06:59 06:59 06:59 Intake Total 2797 3150 Balance 2797 3150 Weight 196 lb 6.91 oz 196 lb 6.91 oz General appearance: PRESENT: no acute distress, well-developed, well-nourished Head exam: PRESENT: atraumatic, normocephalic Eye exam: PRESENT: conjunctiva pink, EOMI, PERRLA. ABSENT: scleral icterus Ear exam: PRESENT: normal external ear exam Mouth exam: PRESENT: moist, tongue midline Neck exam: ABSENT: carotid bruit, JVD, lymphadenopathy, thyromegaly Respiratory exam: PRESENT: clear to auscultation shira. ABSENT: rales, rhonchi, wheezes Cardiovascular exam: PRESENT: RRR. ABSENT: diastolic murmur, rubs, systolic murmur Pulses: PRESENT: normal dorsalis pedis pul GI/Abdominal exam: PRESENT: normal bowel sounds, soft. ABSENT: distended, guarding, mass, organolmegaly, rebound, tenderness Rectal exam: PRESENT: deferred Extremities exam: PRESENT: full ROM. ABSENT: calf tenderness, clubbing, pedal edema Neurological exam: PRESENT: alert, awake, oriented to person, oriented to place, oriented to time, oriented to situation, CN II-XII grossly intact. ABSENT: motor sensory deficit Results Laboratory Results: 03/01/19 04:08 02/28/19 04:19 03/01/19 04:08 WBC 6.6 RBC 3.14 L Hgb 7.8 L Hct 25.3 L MCV 81 MCH 24.8 L MCHC 30.8 L RDW 24.3 H Plt Count 165 Seg Neutrophils % 74.7 Lymphocytes % 12.8 L Monocytes % 11.7 Eosinophils % 0.4 Basophils % 0.4 Absolute Neutrophils 4.9 Absolute Lymphocytes 0.8 Absolute Monocytes 0.8 Absolute Eosinophils 0.0 Absolute Basophils 0.0 Impressions: Abdomen/Pelvis CT 02/24/19 21:15 IMPRESSION: 1. No specific acute intra-abdominal findings are noted to suggest etiology of the patient's abdominal pain. 2. Hepatosplenomegaly and suspected varices of uncertain etiology. 3. Mesenteric haziness with small volume of fluid within the bilateral paracolic gutters and pelvis concerning for ascites. 4. Diffuse reticulation of the abdominopelvic soft tissues suggesting anasarca. 5. Trace fluid suspected at the gallbladder fossa. TECHNICAL DOCUMENTATION: Quality ID # 436: Final reports with documentation of one or more dose reduction techniques (e.g., Automated exposure control, adjustment of the mA and/or kV according to patient size, use of iterative reconstruction technique) copyright 2011 [employer]- All Rights Reserved Qualifiers - * PATIENT BEING DISCHARGED WITH ANY OF THE FOLLOWING DIAGNOSIS: No Acute Heart Failure - Is this a Heart Failure Patient?: No LVEF < 40%?: No- if no continue to question #3 3. Anticoagulant therapy for permanect/persistent/paraoxysmal Afib or Aflutter: N/A
== END 2019-03-01 13:25 | disposition home or self-care (01) | DRG 348 ==
LOC: ER 16:56 → EH 23:53 → 4N 02-25 02:10
PROVIDERS: ADMIT Family Medicine; ATTEND Family Medicine
PROC: 30233N1 Transfusion of Nonautologous Red Blood Cells into Peripheral Vein, Percutaneous Approach (ICD-10-PCS; 2019-02-24)
PROC: 0DJD8ZZ Inspection of Lower Intestinal Tract, Via Natural or Artificial Opening Endoscopic (ICD-10-PCS; 2019-02-26)
PROC: 0DB78ZX Excision of Stomach, Pylorus, Via Natural or Artificial Opening Endoscopic, Diagnostic (ICD-10-PCS; 2019-02-26)
PROC: 06BY0ZC Excision of Hemorrhoidal Plexus, Open Approach (ICD-10-PCS; principal; 2019-02-26 12:00)
PROC: 06LY4CC Occlusion of Hemorrhoidal Plexus with Extraluminal Device, Percutaneous Endoscopic Approach (ICD-10-PCS; 2019-02-26 12:00)
DX: K64.1 Second degree hemorrhoids (principal); D62 Acute posthemorrhagic anemia; R60.1 Generalized edema; F17.210 Nicotine dependence, cigarettes, uncomplicated; F10.10 Alcohol abuse, uncomplicated; R16.2 Hepatomegaly with splenomegaly, not elsewhere classified
CPT/HCPCS: 36415; 36430; 43239; 45378; 46221; 731; 74177; 80048; 80053; 82378; 85025; 85027; 85610; 85730; 86301; 86850; 86900; 86901; 86920; 87045; 87205; 87493; 88304; 88305; 88342; 89055; 902; 96374; 96375; 99284; J0131; J0171; J0330; J1100; J1170; J1200; J1610; J2250; J2270; J2310; J2405; J2704; J3010; J3480; J3490; J7030; P9016

== ENCOUNTER 2019-03-08 07:43 | Emergency (ER) | payer SELFPAY ==
--- NOTE | 2019-03-08 09:48 | ER Document Report ---
ED Medical Screen (RME) - General Chief Complaint: Constipation Stated Complaint: POST SURGICAL ISSUES Time Seen by Provider: 03/08/19 09:40 Mode of Arrival: Wheelchair Information source: Patient Notes: 38 yo female presents to ed for shortness of breath pitting edema bilaterally since 02/28 with swelling to abdomen and no bm. Patient is alert and oriented respirations regular and unlabored speaking in full sentences. She does have 3+ pitting edema. I have greeted and performed a rapid initial assessment of this patient. A comprehensive ED assessment and evaluation of the patient, analysis of test results and completion of medical decision making process will be conducted by an additional ED providers. TRAVEL OUTSIDE OF THE [place] IN LAST 30 DAYS: No - Related Data Allergies/Adverse Reactions: No Known Allergies Allergy (Verified 02/24/19 16:56) Past Medical History Neurological Medical History: Denies: Hx Seizures Renal/ Medical History: Denies: Hx Peritoneal Dialysis Psychiatric Medical History: Denies: Hx Depression Past Surgical History: Reports: Hx Section. Denies: Hx Hysterectomy - Immunizations Hx Diphtheria, Pertussis, Tetanus Vaccination: Yes Physical Exam - Vital signs Vitals: Temp Pulse Resp BP Pulse Ox 98.2 F 83 20 114/70 100 03/08/19 07:48 03/08/19 07:48 03/08/19 07:48 03/08/19 07:48 03/08/19 07:48 Course - Vital Signs Vital signs: Temp Pulse Resp BP Pulse Ox 98.2 F 83 18 111/78 100 03/08/19 07:48 03/08/19 07:48 03/08/19 12:01 03/08/19 12:00 03/08/19 12:01 - Laboratory Result Diagrams: 03/08/19 09:49 03/08/19 09:49 Laboratory results interpreted by me: 03/08/19 03/08/19 03/08/19 09:30 09:49 09:49 RBC 3.40 L Hgb 8.8 L Hct 28.4 L MCH 25.7 L MCHC 30.8 L RDW 26.2 H PT APTT BUN 2 L Creatinine 0.38 L Calcium 8.3 L Total Bilirubin 2.3 H Direct Bilirubin 1.6 H AST 111 H Alkaline Phosphatase 251 H NT-Pro-B Natriuret Pep Albumin 2.6 L Urine Protein 30 H Urine Bilirubin MODERATE H Urine Urobilinogen 4.0 H Ur Leukocyte Esterase TRACE H 03/08/19 03/08/19 09:49 09:49 RBC Hgb Hct MCH MCHC RDW PT 18.6 H APTT 35.9 H BUN Creatinine Calcium Total Bilirubin Direct Bilirubin AST Alkaline Phosphatase NT-Pro-B Natriuret Pep 853 H Albumin Urine Protein Urine Bilirubin Urine Urobilinogen Ur Leukocyte Esterase
[2019-03-08 09:52] LABS: AMORPHOUS SEDIMENT,URINE TRACE /HPF; APPEARANCE,URINE CLOUDY; BILIRUBIN,URINE MODERATE (NEGATIVE); CALCIUM OXALATE CRYSTALS,URINE MODERATE /HPF; COLOR,URINE AMBER; GLUCOSE, URINE NEGATIVE (NEGATIVE); KETONES,URINE NEGATIVE (NEGATIVE); LEUKOCYTE ESTERASE,URINE TRACE (NEGATIVE); NITRITE,URINE NEGATIVE (NEGATIVE); PROTEIN,URINE 30 mg/dL (NEGATIVE); URINE SPECIFIC GRAVITY 1.019
[2019-03-08 10:08] LABS: ABSOLUTE BASOPHILS # (AUTO) 0.1 10^3/uL (0.0-0.2); ABSOLUTE EOSINOPHILS # (AUTO) 0.1 10^3/uL (0.0-0.6); ABSOLUTE LYMPHOCYTES (AUTO) 1.3 10^3/uL (0.5-4.7); ABSOLUTE MONOCYTES (AUTO) 0.8 10^3/uL (0.1-1.4); ABSOLUTE NEUT (AUTO) 5.8 10^3/uL (1.7-8.2); EOSINOPHILS % (AUTO) 0.7 % (0-6); HEMATOCRIT 28.4 % (36.0-47.0); HEMOGLOBIN 8.8 g/dL (12.0-15.5); INTERNATIONAL RATION (INR) 1.54; MEAN CORPUSCULAR HEMOGLOBIN 25.7 pg (27.0-33.4); MEAN CORPUSCULAR HGB CONC 30.8 g/dL (32.0-36.0); MEAN CORPUSCULAR VOLUME 84 fl (80-97); MONOCYTES % (AUTO) 10.2 % (3-13); PLATELET COUNT 235 10^3/uL (150-450); PROTHROMBIN TIME 18.6 SEC (11.4-15.4); RED CELL DISTRIBUTION WIDTH 26.2 % (11.5-14.0); SEGMENTED NEUTROPHILS % (AUTO) 72.1 % (42-78); TOTAL CELLS COUNTED % (AUTO) 100 %
[2019-03-08 10:09] LABS: PARTIAL THROMBOPLASTIN TIME 35.9 SEC (23.5-35.8)
[2019-03-08 10:19] LABS: ALBUMIN 2.6 g/dL (3.5-5.0); ALKALINE PHOSPHATASE 251 U/L (38-126); ANION GAP 8 (5-19); ASPARTATE AMINO TRANSFERASE 111 U/L (14-36); BILIRUBIN,DIRECT 1.6 mg/dL (0.0-0.4); BILIRUBIN,TOTAL 2.3 mg/dL (0.2-1.3); BLOOD UREA NITROGEN 2 mg/dL (7-20); CALCIUM 8.3 mg/dL (8.4-10.2); CARBON DIOXIDE 25 mmol/L (22-30); CHLORIDE 104 mmol/L (98-107); GLUCOSE 93 mg/dL (75-110); POTASSIUM 3.8 mmol/L (3.6-5.0); TOTAL PROTEIN 6.4 g/dL (6.3-8.2)
[2019-03-08 10:31] LABS: ANISOCYTOSIS 3+; HYPOCHROMASIA SLIGHT; OVALOCYTES SLIGHT; PLATELET COMMENT ADEQUATE; POIKILOCYTOSIS SLIGHT; TARGET CELLS SLIGHT
--- NOTE | 2019-03-08 11:11 | RADIOLOGY REPORT (SQ) ---
EXAM DESCRIPTION: KUB/ABDOMEN (SINGLE VIEW) COMPLETED DATE/TIME: 03/08/2019 10:14 am REASON FOR STUDY: abdominal pain short of breath COMPARISON: None. NUMBER OF VIEWS: One view. TECHNIQUE: Supine radiographic image of the abdomen acquired. LIMITATIONS: None. FINDINGS: BOWEL GAS PATTERN: Normal bowel gas pattern. No dilated loops. CALCIFICATIONS: No suspicious calcifications. SOFT TISSUES: No gross mass or suggestion of organomegaly. HARDWARE: None. BONES: No bone lesions or fracture. OTHER: No other significant finding. IMPRESSION: NO RADIOGRAPHIC EVIDENCE FOR ACUTE ABDOMINAL DISEASE. Reading location - IP/workstation name: [email or web address]
--- NOTE | 2019-03-08 11:12 | RADIOLOGY REPORT (SQ) ---
EXAM DESCRIPTION: CHEST 2 VIEWS COMPLETED DATE/TIME: 03/08/2019 10:14 am REASON FOR STUDY: abdominal pain short of breath COMPARISON: None. EXAM PARAMETERS: NUMBER OF VIEWS: two views TECHNIQUE: Digital Frontal and Lateral radiographic views of the chest acquired. RADIATION DOSE: NA LIMITATIONS: none FINDINGS: LUNGS AND PLEURA: No opacities, masses or pneumothorax. No pleural effusion. MEDIASTINUM AND HILAR STRUCTURES: No masses or contour abnormalities. HEART AND VASCULAR STRUCTURES: Heart normal size. No evidence for failure. BONES: No acute findings. HARDWARE: None in the chest. OTHER: No other significant finding. IMPRESSION: NO ACUTE RADIOGRAPHIC FINDING IN THE CHEST. TECHNICAL DOCUMENTATION: JOB ID: [id number] [employer]- All Rights Reserved Reading location - IP/workstation name: [email or web address]
[2019-03-08] MEDS ORDERED: FUROSEMIDE INJ/PF 40 MG/4 ML SDV IV ONE (11:33)
[2019-03-08] MEDS ORDERED: MAGNESIUM CITRATE 296 ML BOTTLE PO ONE (11:34)
--- NOTE | 2019-03-08 12:16 | ER Document Report ---
Entered by MAT GONZALEZ SCRIBE 03/08/19 1115 Acting as scribe for:JACQUES DANIELLE MD ED GI/ - General Chief Complaint: Constipation Stated Complaint: POST SURGICAL ISSUES Time Seen by Provider: 03/08/19 09:40 Mode of Arrival: Wheelchair Information source: Patient, [facility] Records Notes: 38 year old female s/p internal hemorrhoidectomy on 02/26/19 that presents to the emergency department today with complaints of "extreme bloating" with associated abdominal pain and constipation. Patient was originally seen in this ED on 02/24/19 for rectal bleeding and she was tranfused 4 units of blood at that time. Patient was discharged from this facility on 03/01/19. Patient states that this weight gain and bloating began prior to being discharged from this facility but became much worse at home. Patient states her last normal bowel movement was on 02/28. Patient reports trying multiple times to have a bowel movement, stating that the rectal pain is not the reason for her not having bowel movements. Patient states "her butt still puckers when she has to go", stating that she "pushes hard but nothing comes out". Patient states standing up and attempting to walk is very painful and difficult due to this leg swelling. Patient denies any shortness of breath. Review of the records shows that when the patient came in with severe anemia, she was found to have ascites and anasarca. CT scan showed hepatomegaly splenomegaly and probable esophageal varices. TRAVEL OUTSIDE OF THE [place] IN LAST 30 DAYS: No - Related Data Allergies/Adverse Reactions: No Known Allergies Allergy (Verified 02/24/19 16:56) Past Medical History - General Information source: Patient - Social History Smoking Status: Never Smoker Cigarette use (# per day): No Chew tobacco use (# tins/day): No Smoking Education Provided: No Frequency of alcohol use: Heavy Drug Abuse: None Lives with: Family Family History: Reviewed & Not Pertinent, Other - sister of a "stomach tumor" Patient has suicidal ideation: No Patient has homicidal ideation: No Past Surgical History: Reports: Hx Section - x2, Other - Internal hemorrhoidectomy - Immunizations Hx Diphtheria, Pertussis, Tetanus Vaccination: Yes Review of Systems - Review of Systems Constitutional: See HPI, Weight gain EENT: No symptoms reported Cardiovascular: No symptoms reported Respiratory: No symptoms reported Gastrointestinal: See HPI, Abdomen distended, Abdominal pain, Constipation Genitourinary: No symptoms reported Female Genitourinary: No symptoms reported Musculoskeletal: See HPI, Leg swelling Skin: No symptoms reported Hematologic/Lymphatic: No symptoms reported Neurological/Psychological: No symptoms reported -: Yes All other systems reviewed and negative Physical Exam - Vital signs Vitals: Temp Pulse Resp BP Pulse Ox 98.2 F 83 20 114/70 100 03/08/19 07:48 03/08/19 07:48 03/08/19 07:48 03/08/19 07:48 03/08/19 07:48 - Notes Notes: Physical Exam: General: Alert, appears uncomfortable. HEENT: Normocephalic. Atraumatic. PERRL. Extraocular movements intact. Oropharynx clear. Pale conjunctiva. Neck: Supple. Non-tender. Respiratory: No respiratory distress. Clear and equal breath sounds bilaterally. Cardiovascular: Regular rate and rhythm. Nailbeds are pale. Abdominal: Upper abdominal tenderness with palpation. Abdominal distension, states she is "twice her normal size". Abdomen is dull to percuss. Normal Bowel Sounds. Back: Sacral edema Extremities: Moves all four extremities. Upper extremities: Normal inspection. Normal ROM. Lower extremities: 2-3+ soft doughy like edema bilaterally. Neurological: Normal cognition. AAOx4. Normal speech. Psychological: Normal affect. Normal Mood. Skin: Warm. Dry. Pale. Course - Re-evaluation Re-evalutation: 03/08/19 13:28 The patient received 10 mg of Lasix IV, and has been up to urinate several times and states that has been large volume each time. Due to her liver failure from chronic alcoholism, she will be discharged on Spironolactone 25 mg twice daily. She will be advised to not resume drinking alcohol, as she will likely not live very much longer if she does begin drinking again. She should get a primary care provider to help care for her medical problems, and follow-up with a incident response analyst. - Vital Signs Vital signs: Temp Pulse Resp BP Pulse Ox 98.5 F 86 20 121/82 100 03/08/19 13:02 03/08/19 13:02 03/08/19 13:02 03/08/19 13:02 03/08/19 13:02 - Laboratory Result Diagrams: 03/08/19 09:49 03/08/19 09:49 Laboratory results interpreted by me: 03/08/19 03/08/19 03/08/19 09:30 09:49 09:49 RBC 3.40 L Hgb 8.8 L Hct 28.4 L MCH 25.7 L MCHC 30.8 L RDW 26.2 H PT APTT BUN 2 L Creatinine 0.38 L Calcium 8.3 L Total Bilirubin 2.3 H Direct Bilirubin 1.6 H AST 111 H Alkaline Phosphatase 251 H NT-Pro-B Natriuret Pep Albumin 2.6 L Urine Protein 30 H Urine Bilirubin MODERATE H Urine Urobilinogen 4.0 H Ur Leukocyte Esterase TRACE H 03/08/19 03/08/19 09:49 09:49 RBC Hgb Hct MCH MCHC RDW PT 18.6 H APTT 35.9 H BUN Creatinine Calcium Total Bilirubin Direct Bilirubin AST Alkaline Phosphatase NT-Pro-B Natriuret Pep 853 H Albumin Urine Protein Urine Bilirubin Urine Urobilinogen Ur Leukocyte Esterase - Diagnostic Test Radiology reviewed: Image reviewed - Chest x-ray is unremarkable. KUB shows a lot of stool in the colon, but is otherwise unremarkable. Discharge - Discharge Clinical Impression: Anasarca, Peripheral edema Condition: Stable Disposition: HOME, SELF-CARE Additional Instructions: Take the medications as prescribed to help get fluid off. Elevate your feet to help get the swelling down. Increase potassium in your diet while taking the diuretics. Do not start drinking alcohol again, as your liver will completely fail if you continue drinking alcohol. Follow-up with a local medical doctor to manage her medical problems. Follow-up with a local incident response analyst to manage your alcoholic liver disease. RETURN TO THE EMERGENCY ROOM IF ANY NEW OR WORSENING SYMPTOMS. Prescriptions: Spironolactone [Aldactone 25 mg Tablet] 25 mg PO BID #30 tablet Scribe Attestation: 03/08/19 11:32 I personally performed the services described in the documentation, reviewed and edited the documentation which was dictated to the scribe in my presence, and it accurately records my words and actions. I personally performed the services described in the documentation, reviewed and edited the documentation which was dictated to the scribe in my presence, and it accurately records my words and actions.
[2019-03-08 13:49] VITALS: BP 112/66
== END 2019-03-08 13:49 | disposition home or self-care (01) ==
LOC: ER 07:43
DX: R60.1 Generalized edema (principal); K59.00 Constipation, unspecified; R14.0 Abdominal distension (gaseous)
CPT/HCPCS: 99283; 96374; 86900; 86901; 36415; 86850; 83690; 85025; 85610; 85730; 81025; 80053; 81001; 83880; 71046; 74018; J3490; J1940

== ENCOUNTER 2019-03-12 17:09 | Emergency (ER) | payer SELFPAY ==
--- NOTE | 2019-03-12 18:26 | ER Document Report ---
ED Medical Screen (RME) - General Chief Complaint: Edema Stated Complaint: SWELLING/PAIN Time Seen by Provider: 03/12/19 18:09 Mode of Arrival: Wheelchair Information source: Patient Notes: Patient presents with anasarca with an objective 38 pound weight increase from 02/26/2019. Patient did have a recent colonoscopy and endoscopy for evaluation of bleeding hemorrhoids. Patient presents complaining of shortness of breath with exertion. No chest pain. No fever. Patient does report heavy alcohol use prior to her hospitalization but has since stopped drinking alcohol. I have greeted and performed a rapid initial assessment of this patient. A comprehensive ED assessment and evaluation of the patient, analysis of test results and completion of the medical decision making process will be conducted by additional ED providers. TRAVEL OUTSIDE OF THE [place] IN LAST 30 DAYS: No - Related Data Allergies/Adverse Reactions: No Known Allergies Allergy (Verified 03/12/19 17:29) Past Medical History - Social History Frequency of alcohol use: None Drug Abuse: None Neurological Medical History: Denies: Hx Seizures Renal/ Medical History: Denies: Hx Peritoneal Dialysis Psychiatric Medical History: Denies: Hx Depression Past Surgical History: Reports: Hx Section - x2, Other - Internal hemorrhoidectomy. Denies: Hx Hysterectomy - Immunizations Hx Diphtheria, Pertussis, Tetanus Vaccination: Yes Physical Exam - Vital signs Vitals: Temp Pulse Resp BP Pulse Ox 98.8 F 74 18 104/68 98 03/12/19 17:38 03/12/19 17:38 03/12/19 17:38 03/12/19 17:38 03/12/19 17:38 - General Notes: Anasarca - Respiratory Respiratory status: No respiratory distress Breath sounds: Normal Chest palpation: Normal Course - Vital Signs Vital signs: Temp Pulse Resp BP Pulse Ox 98.8 F 74 18 104/68 98 03/12/19 17:38 03/12/19 17:38 03/12/19 17:38 03/12/19 17:38 03/12/19 17:38
--- NOTE | 2019-03-12 18:46 | RADIOLOGY REPORT (SQ) ---
EXAM DESCRIPTION: CHEST 2 VIEWS COMPLETED DATE/TIME: 03/12/2019 6:37 pm REASON FOR STUDY: bubba ellis COMPARISON: 03/08/2019 EXAM PARAMETERS: NUMBER OF VIEWS: two views TECHNIQUE: Digital Frontal and Lateral radiographic views of the chest acquired. RADIATION DOSE: NA LIMITATIONS: none FINDINGS: LUNGS AND PLEURA: No opacities, masses or pneumothorax. No pleural effusion. MEDIASTINUM AND HILAR STRUCTURES: No masses or contour abnormalities. HEART AND VASCULAR STRUCTURES: Stable heart size. No evidence for failure. BONES: No acute findings. HARDWARE: None in the chest. OTHER: No other significant finding. IMPRESSION: NO ACUTE RADIOGRAPHIC FINDING IN THE CHEST. TECHNICAL DOCUMENTATION: JOB ID: [id number] [employer]- All Rights Reserved Reading location - IP/workstation name: [email or web address]
--- NOTE | 2019-03-12 19:01 | ER Document Report ---
ED General - General Chief Complaint: Edema Stated Complaint: SWELLING/PAIN Time Seen by Provider: 03/12/19 18:09 Primary Care Provider: HERMINIO GRIFFIN MD [ACTIVE STAFF] - Follow up in 3-5 days Mode of Arrival: Wheelchair Notes: Patient is a 38-year-old female with history of alcoholic liver disease that presents to the emergency department for chief complaint of leg swelling, and abdominal swelling. Patient states she was recently in the hospital for hemorrhoidal bleeding, had surgeries to stop the bleeding, she did receive 4 units of blood after her surgery, and she states that since her surgery, she is continued to have swelling in her lower abdomen, and legs, she was seen in the E D several days ago, and started on spironolactone, which she has been taking, but states that the swelling continues, she is complaining of generalized body aching all over as well she currently rates her pain as a 4 out of 10. Denies any lightheadedness, dizziness, nausea, vomiting or diarrhea. She has not noticed any further bleeding from her last visit. Past Medical History: Alcoholic liver disease Past Surgical History: Hemorrhoid surgery Social History: Admits to smoking cigarettes, former alcoholic, quit since her admission for surgery, denies any further alcohol, denies illicit drug use. Family History: Reviewed and noncontributory for presenting illness Allergies: Reviewed, see documented allergy list. REVIEW OF SYSTEMS: Other than noted above, the 12 point review of systems was reviewed with the patient and were negative, all pertinent findings are included in the HPI. PHYSICAL EXAMINATION: Vital signs reviewed, nursing noted reviewed. GENERAL: Patient appears uncomfortable on exam, but in no acute distress. HEAD: Atraumatic, normocephalic. EYES: Eyes appear normal, extraocular movements intact, sclera anicteric, conjunctiva are normal. ENT: nares patent, oropharynx clear without exudates. Moist mucous membranes. NECK: Normal range of motion, supple without lymphadenopathy LUNGS: Breath sounds clear to auscultation bilaterally and equal. No wheezes rales or rhonchi. HEART: Regular rate and rhythm without murmurs ABDOMEN: Soft, mild, diffuse tenderness to palpation, no focal tenderness, no appreciated ascites on exam, however she did have lower abdominal edema, consistent with anasarca, normoactive bowel sounds. No rebound, guarding, or rigidity. No masses appreciated. EXTREMITIES: 4+ pitting edema bilaterally in the lower extremities, without erythema, mild tenderness to palpation generally in the lower extremities. NEUROLOGICAL: No focal neurological deficits. Moves all extremities spontaneously Motor and sensory grossly intact on exam. PSYCH: Normal mood, normal affect. SKIN: Warm, Dry, normal turgor, no rashes or lesions noted on exposed skin TRAVEL OUTSIDE OF THE [place] IN LAST 30 DAYS: No - Related Data Allergies/Adverse Reactions: No Known Allergies Allergy (Verified 03/12/19 17:29) Past Medical History - General Information source: Patient - Social History Smoking Status: Current Every Day Smoker Frequency of alcohol use: None Drug Abuse: None Family History: Reviewed & Not Pertinent, Other - sister of a "stomach tumor" Patient has suicidal ideation: No Patient has homicidal ideation: No Neurological Medical History: Denies: Hx Seizures Renal/ Medical History: Denies: Hx Peritoneal Dialysis Psychiatric Medical History: Denies: Hx Depression Past Surgical History: Reports: Hx Section - x2, Other - Internal hemorrhoidectomy. Denies: Hx Hysterectomy - Immunizations Hx Diphtheria, Pertussis, Tetanus Vaccination: Yes Physical Exam - Vital signs Vitals: Temp Pulse Resp BP Pulse Ox 98.8 F 74 18 104/68 98 03/12/19 17:38 03/12/19 17:38 03/12/19 17:38 03/12/19 17:38 03/12/19 17:38 Course - Re-evaluation Re-evalutation: Patient seen and examined vital signs reviewed. Laboratory data and/or imaging were ordered as appropriate for the patient's presenting symptoms and complaint, with consideration of any critical or life threatening conditions that may be associated with their obtained history and exam as noted above. Patient was treated with IV Lasix, and IV fentanyl for her pain, after blood work was reviewed, the demonstrated normal renal function, she had very mild hyperkalemia, likely due to the Spironolactone that she is taking at home, I will prescribe her Lasix, start taking daily, 20 mg, given the patient's blood pressure is borderline, do not want to cause hypotension, as she is already on the spironolactone as well, she will need to follow-up with primary care, I reviewed the patient's operative reports, she had bleeding hemorrhoids, and she did have an EGD and colonoscopy, the EGD was negative for esophageal varices. Patient's hemoglobin, was slightly lower than her last presentation, which I feel is most likely due to hemodilution, given that she is having fluid retention, her INR is stable, her albumin is low, patient likely has cirrhosis, given CT findings of liver disease, and blood work with an elevated INR, low albumin. At this point I feel blood transfusion, would only worsen the patient's edema, and anasarca. Her chest x-ray is negative, BNP was slightly elevated from her previous visit, again patient needs to be on increased diuretics, and initiate overall improved, she is not having any chest pain or shortness of breath at rest and she is not hypoxic. The patient was re-evaluated and was stable, tolerated the IV Lasix Evaluation was most consistent with anasarca, likely secondary to the patient's liver disease, no renal impairment, will prescribe her Lasix, 20 mg, for 1 week, but advised she needs to follow-up with her primary care physician, she will need this to be continued and monitored. Results were discussed with the patient at this point, after careful consideration I feel that that patient can be discharged from the emergency department, the patient was educated treatments and reasons to return to the emergency department based on their presumed diagnosis as noted above, they were advised to followup with a primary care physician in 2-3 days. Patient was agreeable to plan of care. *Note is created using voice recognition software and may contain spelling, syntax or grammatical errors. Laboratory 03/12/19 03/12/19 03/12/19 18:52 18:52 18:52 WBC 8.4 RBC 2.98 L Hgb 7.9 L Hct 25.0 L MCV 84 MCH 26.7 L MCHC 31.7 L RDW 27.2 H Plt Count 246 Lymph % (Auto) 21.2 [place] % (Auto) 8.1 Eos % (Auto) 0.8 Baso % (Auto) 0.8 Absolute Neuts (auto) 5.8 Absolute Lymphs (auto) 1.8 Absolute Monos (auto) 0.7 Absolute Eos (auto) 0.1 Absolute Basos (auto) 0.1 Seg Neutrophils % 69.1 Platelet Comment ADEQUATE Hypochromasia 2+ Anisocytosis 3+ Spherocytes 1+ PT INR Sodium 136.0 L Potassium 5.2 H Chloride 101 Carbon Dioxide 30 Anion Gap 5 BUN 8 Creatinine 0.52 Est GFR ( Amer) > 60 Est GFR (MDRD) Non-Af > 60 Glucose 84 Calcium 8.8 Total Bilirubin 1.8 H Direct Bilirubin 1.4 H Neonat Total Bilirubin Not Reportable Neonat Direct Bilirubin Not Reportable Neonat Indirect Bili Not Reportable AST 96 H ALT 16 Alkaline Phosphatase 198 H Troponin I < 0.012 NT-Pro-B Natriuret Pep 1460 H Total Protein 6.4 Albumin 2.6 L Serum HCG, Qual 03/12/19 03/12/19 18:52 18:52 WBC RBC Hgb Hct MCV MCH MCHC RDW Plt Count Lymph % (Auto) [place] % (Auto) Eos % (Auto) Baso % (Auto) Absolute Neuts (auto) Absolute Lymphs (auto) Absolute Monos (auto) Absolute Eos (auto) Absolute Basos (auto) Seg Neutrophils % Platelet Comment Hypochromasia Anisocytosis Spherocytes PT 17.5 H INR 1.42 Sodium Potassium Chloride Carbon Dioxide Anion Gap BUN Creatinine Est GFR ( Amer) Est GFR (MDRD) Non-Af Glucose Calcium Total Bilirubin Direct Bilirubin Neonat Total Bilirubin Neonat Direct Bilirubin Neonat Indirect Bili AST ALT Alkaline Phosphatase Troponin I NT-Pro-B Natriuret Pep Total Protein Albumin Serum HCG, Qual NEGATIVE Chest X-Ray 03/12/19 18:19 IMPRESSION: NO ACUTE RADIOGRAPHIC FINDING IN THE CHEST. - Vital Signs Vital signs: Temp Pulse Resp BP Pulse Ox 98.8 F 74 18 104/68 98 03/12/19 17:38 03/12/19 17:38 03/12/19 17:38 03/12/19 17:38 03/12/19 17:38 - Laboratory Result Diagrams: 03/12/19 18:52 03/12/19 18:52 Laboratory results interpreted by me: 03/12/19 03/12/19 03/12/19 18:52 18:52 18:52 RBC 2.98 L Hgb 7.9 L Hct 25.0 L MCH 26.7 L MCHC 31.7 L RDW 27.2 H PT Sodium 136.0 L Potassium 5.2 H Total Bilirubin 1.8 H Direct Bilirubin 1.4 H AST 96 H Alkaline Phosphatase 198 H NT-Pro-B Natriuret Pep 1460 H Albumin 2.6 L 03/12/19 18:52 RBC Hgb Hct MCH MCHC RDW PT 17.5 H Sodium Potassium Total Bilirubin Direct Bilirubin AST Alkaline Phosphatase NT-Pro-B Natriuret Pep Albumin - EKG Interpretation by Me Additional EKG results interpreted by me: EKG demonstrates sinus rhythm with a ventricular rate of 71 bpm, slight left axis deviation, QTC 461 ms, nonspecific T wave inversions in leads V2 and III, no ST elevation, no prior for comparison at this time. Discharge - Discharge Clinical Impression: Anasarca, Peripheral edema Condition: Stable Disposition: HOME, SELF-CARE Instructions: Edema, Peripheral ([facility]) Additional Instructions: Please continue taking the prescription that you are given at your last ER visit, and take the new one as prescribed, for the next week, advised the need to follow-up with your primary care, to continue the medications, the need to recheck your blood work as well to make sure that your kidneys and electrolytes look good. I also advised to follow-up with a employment service specialist, Dr. Griffin saw you in the hospital, recommend follow-up with him. Prescriptions: Furosemide [Lasix 20 mg Tablet] 20 mg PO QAM #7 tablet Oxycodone HCl [Oxycontin Ir 5 Mg Tablet] 5 mg PO Q8H PRN #15 tablet PRN Reason: leg pain Referrals: HERMINIO GRIFFIN MD [ACTIVE STAFF] - Follow up in 3-5 days
--- NOTE | 2019-03-12 19:06 | EKG REPORT ---
SEVERITY:- BORDERLINE ECG - SINUS RHYTHM BORDERLINE T ABNORMALITIES, ANTERIOR LEADS : Confirmed by: Logan Pearson MD 12-Mar-2019 19:06:26
[2019-03-12 19:09] LABS: ABSOLUTE BASOPHILS # (AUTO) 0.1 10^3/uL (0.0-0.2); ABSOLUTE EOSINOPHILS # (AUTO) 0.1 10^3/uL (0.0-0.6); ABSOLUTE LYMPHOCYTES (AUTO) 1.8 10^3/uL (0.5-4.7); ABSOLUTE MONOCYTES (AUTO) 0.7 10^3/uL (0.1-1.4); ABSOLUTE NEUT (AUTO) 5.8 10^3/uL (1.7-8.2); BASOPHILS % (AUTO) 0.8 % (0-2); EOSINOPHILS % (AUTO) 0.8 % (0-6); LYMPHOCYTES % (AUTO) 21.2 % (13-45); MEAN CORPUSCULAR HEMOGLOBIN 26.7 pg (27.0-33.4); MEAN CORPUSCULAR HGB CONC 31.7 g/dL (32.0-36.0); MEAN CORPUSCULAR VOLUME 84 fl (80-97); MONOCYTES % (AUTO) 8.1 % (3-13); PLATELET COUNT 246 10^3/uL (150-450); RED BLOOD COUNT 2.98 10^6/uL (3.72-5.28); RED CELL DISTRIBUTION WIDTH 27.2 % (11.5-14.0); SEGMENTED NEUTROPHILS % (AUTO) 69.1 % (42-78); TOTAL CELLS COUNTED % (AUTO) 100 %; WHITE BLOOD COUNT 8.4 10^3/uL (4.0-10.5)
[2019-03-12 19:14] LABS: HEMOGLOBIN 7.9 g/dL (12.0-15.5)
[2019-03-12 19:22] LABS: ALBUMIN 2.6 g/dL (3.5-5.0); ALKALINE PHOSPHATASE 198 U/L (38-126); ANION GAP 5 (5-19); ASPARTATE AMINO TRANSFERASE 96 U/L (14-36); BILIRUBIN,DIRECT 1.4 mg/dL (0.0-0.4); BILIRUBIN,TOTAL 1.8 mg/dL (0.2-1.3); BLOOD UREA NITROGEN 8 mg/dL (7-20); CALCIUM 8.8 mg/dL (8.4-10.2); CARBON DIOXIDE 30 mmol/L (22-30); CHLORIDE 101 mmol/L (98-107); GLUCOSE 84 mg/dL (75-110); POTASSIUM 5.2 mmol/L (3.6-5.0); TOTAL PROTEIN 6.4 g/dL (6.3-8.2)
[2019-03-12 19:26] LABS: ANISOCYTOSIS 3+; HYPOCHROMASIA 2+; SPHEROCYTES 1+
[2019-03-12 19:27] LABS: PLATELET COMMENT ADEQUATE
[2019-03-12] MEDS ORDERED: FUROSEMIDE INJ/PF 20 MG/2 ML SDV IV ONE (19:28)
[2019-03-12 19:33] LABS: NT PRO BNP 1460 pg/mL (<125)
[2019-03-12 19:34] LABS: TROPONIN I < 0.012 ng/mL
[2019-03-12 19:49] LABS: INTERNATIONAL RATION (INR) 1.42; PROTHROMBIN TIME 17.5 SEC (11.4-15.4)
[2019-03-12] MEDS ORDERED: FENTANYL CITRATE INJ/PF 100 MCG/2 ML AMPUL IV ONE (20:16)
[2019-03-12] MEDS ORDERED: ONDANSETRON HCL INJ/PF 4 MG/2 ML SDV IV ONE (20:16)
[2019-03-12 21:43] VITALS: BP 119/81
== END 2019-03-12 21:49 | disposition home or self-care (01) ==
LOC: ER 17:09
DX: R60.1 Generalized edema (principal); E87.5 Hyperkalemia; F17.210 Nicotine dependence, cigarettes, uncomplicated
CPT/HCPCS: 93005; 99284; 96374; 96375; 36415; 84703; 85025; 85610; 80053; 84484; 83880; 71046; 93010; J3010; J1940; J2405

== ENCOUNTER 2019-04-23 10:27 | Emergency (ER) | payer SELFPAY ==
--- NOTE | 2019-04-23 11:06 | ER Document Report ---
ED Medical Screen (RME) - General Stated Complaint: ANAL PAIN Time Seen by Provider: 04/23/19 11:03 Mode of Arrival: Ambulatory Information source: Patient Notes: This 38-year-old female with history of hemorrhoids and hemorrhoidectomy presents emergency department with possible hemorrhoid or abscess around the rectal area. She reports large area swollen reports when she had a stool that was more yellow-colored. Denies fever vomiting. Reports very painful to sit patient is sitting on her right side. I have greeted and performed a rapid initial assessment of this patient. A comprehensive ED assessment and evaluation of the patient, analysis of test results and completion of the medical decision making process will be conducted by additional ED providers. Dictation of this chart was performed using voice recognition software; therefore, there may be some unintended grammatical errors. TRAVEL OUTSIDE OF THE [place] IN LAST 30 DAYS: No - Related Data Allergies/Adverse Reactions: No Known Allergies Allergy (Verified 03/12/19 17:29) Past Medical History Neurological Medical History: Denies: Hx Seizures Renal/ Medical History: Denies: Hx Peritoneal Dialysis Psychiatric Medical History: Denies: Hx Depression Past Surgical History: Reports: Hx Section - x2, Other - Internal hemorrhoidectomy. Denies: Hx Hysterectomy - Immunizations Hx Diphtheria, Pertussis, Tetanus Vaccination: Yes Physical Exam - Vital signs Vitals: Temp Pulse Resp BP Pulse Ox 98.6 F 115 H 18 126/88 H 97 04/23/19 10:33 04/23/19 10:33 04/23/19 10:33 04/23/19 10:33 04/23/19 10:33 Course - Vital Signs Vital signs: Temp Pulse Resp BP Pulse Ox 98.6 F 115 H 18 126/88 H 97 04/23/19 10:33 04/23/19 10:33 04/23/19 10:33 04/23/19 10:33 04/23/19 10:33
--- NOTE | 2019-04-23 13:10 | ER Document Report ---
ED General - General Chief Complaint: Rectal Pain Stated Complaint: ANAL PAIN Time Seen by Provider: 04/23/19 11:03 Primary Care Provider: EDWIN URBINA MD [ACTIVE STAFF] - Follow up as needed UMANG ADAMS MD [Primary Care Provider] - Follow up as needed Mode of Arrival: Ambulatory Information source: Patient TRAVEL OUTSIDE OF THE [place] IN LAST 30 DAYS: No - HPI Notes: 38-year-old female with history of alcoholic liver disease presents to the ED with chief complaint of rectal pain, she is unsure if this is due to a rectal hemorrhoid or to rectal abscess. Reports pain is 5 out of 10, throbbing achy. Has become progressively worse over the last week, has not seen her primary care provider for this concern. Has not tried any [id number] medications for this issue. Patient states that she has had normal bowel movements, no melena. Patient is not taking a anticoagulant. Patient is not sure if this is regarding her hemorrhoids or if she actually has a rectal abscess. Denies fevers, chills, chest pain,palpitations, shortness of breath, dyspnea, nausea, vomiting, diarrhea, abdominal pain, hematuria,blurred vision, double vision, loss of vision, speech changes, LH, dizziness, syncope, headaches, wheezing, ST, URI, neck pain, weakness, bowel or bladder dysfunction, saddle anesthesia, numbness or tingling in bilateral upper or lower extremities equally, muscle paralysis, weakness in bilateral upper or lower extremities equally or rash. - Related Data Allergies/Adverse Reactions: adhesive Allergy (Verified 04/23/19 11:16) Past Medical History - General Information source: Patient - Social History Smoking Status: Current Every Day Smoker Chew tobacco use (# tins/day): No Frequency of alcohol use: Occasional Drug Abuse: None Family History: Reviewed & Not Pertinent, Other - sister of a "stomach tumor" Patient has suicidal ideation: No Patient has homicidal ideation: No Neurological Medical History: Denies: Hx Seizures Renal/ Medical History: Denies: Hx Peritoneal Dialysis Psychiatric Medical History: Denies: Hx Depression Past Surgical History: Reports: Hx Section - x2, Other - Internal hemorrhoidectomy. Denies: Hx Hysterectomy - Immunizations Hx Diphtheria, Pertussis, Tetanus Vaccination: Yes Review of Systems - Review of Systems Constitutional: No symptoms reported EENT: No symptoms reported Cardiovascular: No symptoms reported Respiratory: No symptoms reported Gastrointestinal: See HPI Genitourinary: No symptoms reported Female Genitourinary: No symptoms reported Musculoskeletal: No symptoms reported Skin: See HPI Hematologic/Lymphatic: No symptoms reported Neurological/Psychological: No symptoms reported Physical Exam - Vital signs Vitals: Temp Pulse Resp BP Pulse Ox 98.6 F 115 H 18 126/88 H 97 04/23/19 10:33 04/23/19 10:33 04/23/19 10:33 04/23/19 10:33 04/23/19 10:33 - Notes Notes: PHYSICAL EXAMINATION: reviewed vital signs by RN GENERAL: Well-appearing, well-nourished and in no acute distress. HEAD: Atraumatic, normocephalic. EYES: Pupils equal round and reactive to light, extraocular movements intact, conjunctiva are normal. ENT: Nares patent, oropharynx clear without exudates. Moist mucous membranes. NECK: Normal range of motion, supple without lymphadenopathy LUNGS: Breath sounds clear to auscultation bilaterally and equal. No wheezes rales or rhonchi. HEART: Regular rate and rhythm without murmurs ABDOMEN: Soft, nontender, nondistended abdomen. No guarding, no rebound. No masses appreciated. Female : left buttocks with an area of rectal induration, warmth to touch, erythema approx [id number], no open wounds or drainage. No satellite lesions, burning or surrounding erythema. Noted small, external hemorrhoids that are not engorged, no strangulation. Musculoskeletal: Normal range of motion, no pitting or edema. No cyanosis. NEUROLOGICAL: Cranial nerves grossly intact. Normal speech, normal gait. Normal sensory, motor exams PSYCH: Normal mood, normal affect. SKIN: Warm, Dry, normal turgor, no rashes or lesions noted. Course - Re-evaluation Re-evalutation: 04/23/19 14:46 38-year-old female afebrile vital stable no distress. Nurse's notes reviewed. CBC negative for leukocytosis, shows anemia, CMP negative for renal deficiency, AST elevated, this is not 3 times the limit, alk phos is elevated however with trending her alk phos is in regards to her liver dysfunction, this is correlated. CT of pelvis with contrast shows there is a soft tissue asymmetry versus inflammation involving the rectum as described but no abscesses appreciated. There is no fluid collection to suggest an abscess with mild inguinal adenopathy. Patient does have a left medial aspects of her buttocks with a 1 cm by centimeter area of induration erythema and warmth to touch, will start patient on clindamycin 300 mg every 6 hours. Advised to follow-up with primary care provider, apply heat 20 minutes on 20 minutes off several times a day. Take meloxicam as needed for pain control. After performing a Medical Screening Examination, I estimate there is LOW risk for ACUTE APPENDICITIS, BOWEL OBSTRUCTION, ACUTE CHOLECYSTITIS, PERFORATED DIVERTICULITIS, INCARCERATED HERNIA, PANCREATITIS, PELVIC INFLAMMATORY DISEASE, PERFORATED ULCER, ECTOPIC , or TUBO-OVARIAN ABSCESS, thus I consider the discharge disposition reasonable. Also, there is no evidence or peritonitis, sepsis, or toxicity. I have reevaluated this patient multiple times and no significant life threatening changes are noted. The patient and I have discussed the diagnosis and risks, and we agree with discharging home with close follow-up with the understanding that symptoms and presentations can change. We also discussed returning to the Emergency Department immediately if new or worsening symptoms occur. We have discussed the symptoms which are most concerning (e.g., bloody stool, fever, changing or worsening pain, vomiting) that necessitate immediate return. - Vital Signs Vital signs: Temp Pulse Resp BP Pulse Ox 98.6 F 106 H 16 129/89 H 100 04/23/19 15:53 04/23/19 15:53 04/23/19 15:53 04/23/19 15:53 04/23/19 15:53 - Laboratory Result Diagrams: 04/23/19 14:11 04/23/19 14:11 Laboratory results interpreted by me: 04/23/19 04/23/19 14:11 14:11 RBC 3.65 L Hgb 8.8 L Hct 28.3 L MCV 78 L MCH 24.2 L MCHC 31.2 L RDW 20.5 H BUN 2 L Creatinine 0.41 L AST 73 H Alkaline Phosphatase 230 H Albumin 3.3 L Discharge - Discharge Clinical Impression: Cellulitis, Elevated liver enzymes Condition: Stable Disposition: HOME, SELF-CARE Instructions: Cellulitis ([facility]), MRSA Cellulitis ([facility]) Additional Instructions: CT of your pelvis was negative for abscess. Please take medications as prescribed, apply heat 20 minutes on 20 minutes off several times a day to the area this affected. Take meloxicam as directed. Follow-up with your primary care provider. Also your liver enzymes are elevated however they have been chronically elevated over the course of time, his limit the amount of alcohol that you drink. Return immediately for any new or worsening symptoms. Follow up with primary care provider, call tomorrow to make followup appointment. Prescriptions: Clindamycin HCl 300 mg PO Q6H #28 capsule Meloxicam [Mobic] 7.5 mg PO DAILY #7 tablet Forms: Return to Work Referrals: EDWIN URBINA MD [ACTIVE STAFF] - Follow up as needed UMANG ADAMS MD [Primary Care Provider] - Follow up as needed
[2019-04-23] MEDS ORDERED: KETOROLAC TROMETHAMINE INJ/PF 30 MG/1 ML SDV IV ONE (13:41)
[2019-04-23 14:28] LABS: ABSOLUTE BASOPHILS # (AUTO) 0.1 10^3/uL (0.0-0.2); ABSOLUTE LYMPHOCYTES (AUTO) 1.7 10^3/uL (0.5-4.7); ABSOLUTE MONOCYTES (AUTO) 0.5 10^3/uL (0.1-1.4); ABSOLUTE NEUT (AUTO) 4.4 10^3/uL (1.7-8.2); EOSINOPHILS % (AUTO) 0.6 % (0-6); HEMATOCRIT 28.3 % (36.0-47.0); HEMOGLOBIN 8.8 g/dL (12.0-15.5); LYMPHOCYTES % (AUTO) 25.3 % (13-45); MEAN CORPUSCULAR HEMOGLOBIN 24.2 pg (27.0-33.4); MEAN CORPUSCULAR HGB CONC 31.2 g/dL (32.0-36.0); MEAN CORPUSCULAR VOLUME 78 fl (80-97); MONOCYTES % (AUTO) 7.8 % (3-13); PLATELET COUNT 305 10^3/uL (150-450); RED BLOOD COUNT 3.65 10^6/uL (3.72-5.28); RED CELL DISTRIBUTION WIDTH 20.5 % (11.5-14.0); SEGMENTED NEUTROPHILS % (AUTO) 65.3 % (42-78); TOTAL CELLS COUNTED % (AUTO) 100 %; WHITE BLOOD COUNT 6.8 10^3/uL (4.0-10.5)
[2019-04-23 14:48] LABS: ALBUMIN 3.3 g/dL (3.5-5.0); ALKALINE PHOSPHATASE 230 U/L (38-126); ANION GAP 8 (5-19); ASPARTATE AMINO TRANSFERASE 73 U/L (14-36); BILIRUBIN,DIRECT 0.4 mg/dL (0.0-0.4); BILIRUBIN,TOTAL 0.5 mg/dL (0.2-1.3); BLOOD UREA NITROGEN 2 mg/dL (7-20); CARBON DIOXIDE 27 mmol/L (22-30); CHLORIDE 105 mmol/L (98-107); GLUCOSE 92 mg/dL (75-110); POTASSIUM 4.2 mmol/L (3.6-5.0); TOTAL PROTEIN 7.5 g/dL (6.3-8.2)
--- NOTE | 2019-04-23 15:15 | RADIOLOGY REPORT (SQ) ---
EXAM DESCRIPTION: CT PELVIS WITH COMPLETED DATE/TIME: 04/23/2019 2:46 pm REASON FOR STUDY: rectal pain with abcess COMPARISON: None. TECHNIQUE: CT scan of the pelvis performed without intravenous or oral contrast. Images reviewed wi th soft tissue and bone windows. Reconstructed coronal and sagittal MPR images reviewed. All images stored on PACS. All CT scanners at this facility use dose modulation, iterative reconstruction, and/or weight based d osing when appropriate to reduce radiation dose to as low as reasonably achievable (ALARA). [facility]: Dose Right [facility]: CareDose [facility]: Dose Right [facility]: Teradose 4D [facility]: Smart DEMANDIT RADIATION DOSE: CT Rad equipment meets quality standard of care and radiation dose reduction techniq ues were employed. CTDIvol: 5.6 - 7.7 mGy. DLP: 905 mGy-cm. mGy. LIMITATIONS: None. FINDINGS: PELVIC BONES: No acute fracture. No worrisome bone lesions. VISUALIZED SPINE: No acute findings. HIP(S): No acute fracture or dislocation. No worrisome bone lesions. PELVIC SOFT TISSUES: Urinary bladder is normal. No abnormal pelvic mass or fluid collection. EXTRAPELVIC SOFT TISSUES: There is asymmetric soft tissue thickening/ inflammation associated with th e anus. See image 44 series 3. There is greater opacification to the left of the midline. No fluid collection is seen to suggest an abscess. Inguinal adenopathy. OTHER: No other significant finding. IMPRESSION: There is soft tissue asymmetry versus inflammation involving the rectum as described. N o abscess is appreciated. There is mild inguinal adenopathy. TECHNICAL DOCUMENTATION: JOB ID: [id number] Quality ID # [id number]: Final reports with documentation of one or more dose reduction techniques (e.g., Au tomated exposure control, adjustment of the mA and/or kV according to patient size, use of iterative reconstruction technique) 2010 [employer]- All Rights Reserved Reading location - IP/workstation name: [email or web address]
[2019-04-23 15:54] VITALS: BP 129/89
== END 2019-04-23 16:19 | disposition home or self-care (01) ==
LOC: ER 10:27
DX: L03.90 Cellulitis, unspecified (principal); R74.0 Nonspecific elevation of levels of transaminase and lactic acid dehydrogenase [LDH]; K64.4 Residual hemorrhoidal skin tags; K62.89 Other specified diseases of anus and rectum; D64.9 Anemia, unspecified; R59.0 Localized enlarged lymph nodes; F17.200 Nicotine dependence, unspecified, uncomplicated; Z91.048 Other nonmedicinal substance allergy status
CPT/HCPCS: 36415; 85025; 80053; 72193; J1885; 96374; 99284

== ENCOUNTER 2019-09-23 11:44 | Day surgery (SDC) | payer MEDICAID ==
[~2019-09-23 11:44] MED LIST: IBUPROFEN 800 MG in NORMAL SALINE 250 ML IV PRN; METRONIDAZOLE 500 MG/NS RTU 500 MG/100 ML RTUPB IV PRN
[2019-09-23] MEDS ORDERED: METRONIDAZOLE 500 MG/NS RTU 500 MG/100 ML RTUPB IV ONE (11:52)
[2019-09-23 13:29] LABS: ABSOLUTE EOSINOPHILS # (AUTO) 0.1 10^3/uL (0.0-0.6); ABSOLUTE LYMPHOCYTES (AUTO) 1.3 10^3/uL (0.5-4.7); ABSOLUTE MONOCYTES (AUTO) 0.6 10^3/uL (0.1-1.4); ABSOLUTE NEUT (AUTO) 3.3 10^3/uL (1.7-8.2); BASOPHILS % (AUTO) 0.7 % (0-2); EOSINOPHILS % (AUTO) 1.2 % (0-6); HEMATOCRIT 28.1 % (36.0-47.0); HEMOGLOBIN 8.9 g/dL (12.0-15.5); LYMPHOCYTES % (AUTO) 25.1 % (13-45); MEAN CORPUSCULAR HGB CONC 31.8 g/dL (32.0-36.0); MEAN CORPUSCULAR VOLUME 69 fl (80-97); MONOCYTES % (AUTO) 11.8 % (3-13); PLATELET COUNT 201 10^3/uL (150-450); RED BLOOD COUNT 4.07 10^6/uL (3.72-5.28); RED CELL DISTRIBUTION WIDTH 19.8 % (11.5-14.0); SEGMENTED NEUTROPHILS % (AUTO) 61.2 % (42-78); TOTAL CELLS COUNTED % (AUTO) 100 %; WHITE BLOOD COUNT 5.3 10^3/uL (4.0-10.5)
[2019-09-23] MEDS ORDERED: FENTANYL CITRATE INJ/PF 100 MCG/2 ML AMPUL ONE (13:43)
[2019-09-23] MEDS ORDERED: MIDAZOLAM 2 MG/2 ML INJ ONE (13:43)
[2019-09-23] MEDS ORDERED: PROPOFOL INJ 200 MG/20 ML VIAL IV ONE ×2 (13:43→14:49)
[2019-09-23] MEDS ORDERED: ONDANSETRON HCL INJ/PF 4 MG/2 ML SDV ONE (13:43)
[2019-09-23] MEDS ORDERED: LIDOCAINE 2% JELLY 30 ML TUBE ONE (13:55)
[2019-09-23] MEDS ORDERED: BUPIVACAINE INJ/PF LIPOSOME/PF 266 MG/20 ML SDV ONE (13:55)
[2019-09-23] MEDS ORDERED: BACITRACIN ZINC OINTMENT 15 GM ONE (13:55)
[2019-09-23] MEDS ORDERED: MEPERIDINE HCL/PF INJ 25 MG/1 ML DISP.SYRIN IV PRN (14:32)
[2019-09-23] MEDS ORDERED: DIPHENHYDRAMINE HCL 50 MG/ML VIAL IV PRN (14:32)
[2019-09-23] MEDS ORDERED: FENTANYL CITRATE INJ/PF 100 MCG/2 ML AMPUL IV PRN ×3 (14:32)
[2019-09-23] MEDS ORDERED: PROMETHAZINE HCL INJ 25 MG/1 ML VIAL IV PRN (14:32)
[2019-09-23] MEDS ORDERED: MORPHINE SULFATE 10 MG/ML INJ IV PRN (14:32)
--- NOTE | 2019-09-23 15:22 | Discharge Summary ---
Discharge Summary (SDC) - Discharge Final Diagnosis: Anorectal fistula Date of Surgery: 09/23/19 Discharge Date: 09/23/19 Condition: Stable Treatment or Instructions: Discharge home. Diet as tolerated. Activity: Nonstrenuous. [place] 10/325 mg p.o. every 6 hours as needed for pain. Ibuprofen 800 mg p.o. 3 times daily with meals. 5% lidocaine ointment to rectum 3 times daily. Sits baths in warm soapy water twice daily and after bowel movements. Stool softener (Colace 100 mg) p.o. twice daily. Metamucil fiber supplement, 1 heaping tablespoon in 8 ounces of water p.o. twice daily. Prescriptions: Ibuprofen [Motrin 800 mg Tablet] 800 mg PO MEALS #42 tablet Hydrocodone/Acetaminophen [[place] 10-325 mg Tablet] 1 tab PO Q6HP PRN #28 tablet PRN Reason: Referrals: MATTHIEU FIELDS PA-C [Primary Care Provider] - Discharge Diet: As Tolerated Respiratory Treatments at Home: Deep Breathing/Coughing, Incentive Spirometer Discharge Activity: Balance Activity w/Rest Home Care Assistance: None Needed Report the Following to Your Physician Immediately: Shortness of Breath, Nausea, Vomiting, Increase in Pain, Fever over 101 Degrees, Unusual Bleeding, Redness
--- NOTE | 2019-09-23 15:29 | Operative Report ---
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 Rectal exam under anesthesia. 2. Endorectal advancement flap SURGEON: KI ZAMUDIO ANESTHESIA: LMAC TISSUE REMOVED OR ALTERED: external component of anorectal fistula COMPLICATIONS: none apparent ESTIMATED BLOOD LOSS: 100cc PROCEDURE: Drains/implants: 4 x 4 gauze packing. Procedure in detail: After informed consent was obtained, the patient was brought to the operating room and laid the prone jackknife position. An anal block was created with 20 cc of Exparel. The external fistula tract was easily identified. A Hill-Rogel retractor was inserted into the rectum. Peroxide was injected into the fistula tract, and the internal opening was easily identified. It appeared to be immediately involving the sphincter complex. Secondary to this, a lacrimal probe was used to delineate the fistula tract. Next, the external fistula tract was excised using sharp dissection and electrocautery, down to the sphincter complex. The sphincter complex was left intact, without damage. The external portion of the fistula tract was then removed completely from the patient, and passed off the field. Next, the internal sphincter opening was identified. It was ellipsed out with a 15 blade scalpel. Next, an endorectal advancement flap was performed. The flap was created by extending incisions laterally, away from the internal fistula opening. Mucosa and muscularis were then raised using sharp dissection. The opening of the fistula tract, involving the musculature was closed using 3- 0 Vicryl suture in [id number] fashion. The endorectal advancement flap was then brought over top of the suture repair. It was sutured to the underlying tissue using 3-0 Vicryl suture. This was done in several layers. Once the flap was closed, hemostasis was ensured. Next, the external opening was packed with 4 x 4 gauze. A dressing was placed, and the procedure was concluded. All sponge, instrument, and needle counts were correct x2. Condition: Stable.
[2019-09-23 18:42] VITALS: BP 103/66
== END 2019-09-23 17:50 | disposition home or self-care (01) ==
LOC: OROUT 11:44
PROVIDERS: ATTEND Surgery
DX: K60.5 Anorectal fistula (principal); F17.210 Nicotine dependence, cigarettes, uncomplicated; D64.9 Anemia, unspecified
CPT/HCPCS: 36415; 85025; 81025; 00902; 46288; J2250; J3490 ×3; J3010; J2405; J7050; J2704; C9290; J1741; 902